=== PATIENT | male | born 1940 | race Caucasian/White ===

== ENCOUNTER → 2023-07-07 13:59 | Outpatient (REF) | payer BC, MEDICARE, SELFPAY | LOC: DHCBS MAIN 13:59 | PROVIDERS: ATTENDING PHYSICIAN Nuclear Medicine Nuclear Cardiology; FAMILY PHYSICIAN Family Medicine | DX: I34.0 Nonrheumatic mitral (valve) insufficiency (principal) | CPT/HCPCS: 93306 ==

== ENCOUNTER → 2023-10-29 16:00 | Outpatient (REF) | payer BC, MEDICARE, SELFPAY ==
[2023-10-30 12:14] LABS: Blood Urea Nitrogen 24 mg/dl (9-20); Glucose 104 mg/dl (70-99); eGFR > 60.00
[2023-10-30 12:15] LABS: ALT (SGPT) 15 U/L (0-50); AST (SGOT) 20 U/L (17-59); Albumin 3.8 g/dl (3.5-5.0); Alkaline Phosphatase 97 U/L (38-126); Calcium 9.4 mg/dl (8.4-10.2); Carbon Dioxide 28 mmol/L (22-30); Chloride 105 mmol/L (98-107); HDL Cholesterol 43 mg/dl; LDL Cholesterol, Calculated 83 mg/dl; Potassium 3.9 mmol/L (3.5-5.1); Sodium 140 mmol/L (135-145); Total Cholesterol 151 mg/dl (50-199); Total Protein 6.2 g/dl (6.3-8.2); Triglyceride 127 mg/dl (10-149); Very Low Density Lipoprotein 25 mg/dl (0-30)
[2023-10-30 12:16] LABS: % Neutrophils 57.3 % (42.2-75.2); Hematocrit 45.1 % (39.0-52.0); Hemoglobin 15.6 g/dL (13.0-18.0); Mean Corp Hgb Conc. 34.6 g/dL (33.0-37.0); Mean Corpuscular Hgb 33.1 pg (27.0-31.0); Mean Corpuscular Volume 95.6 fL (80.0-94.0); Mean Platelet Volume 12.3 fL (7.4-10.4); Platelet Count 138 10^3/uL (130-400); Red Blood Cell Count 4.72 10^6/uL (4.70-6.10); Red Cell Dist. Width 13.2 % (11.5-14.5); TSH 3.33 uIU/ml (0.47-4.68); White Blood Cell Count 7.7 10^3/uL (4.8-10.8)
[2023-10-30 12:17] LABS: % Basophils 0.4 % (0-2); % Eosinophils 2.6 % (0-6); % Immature Granulocytes 0.4 % (0-0.5); % Lymphocytes 31.7 % (20.5-51.1); % Monocytes 7.6 % (1.7-9.3); Absolute Eosinophils 0.2 10^3/uL (0-0.7); Absolute Lymphocytes 2.4 10^3/uL (1.2-3.4); Absolute Monocytes 0.6 10^3/uL (0.1-0.6); Absolute Neutrophils 4.4 10^3/uL (1.4-6.5); Glycohemoglobin (HgbA1c) 6.1 % (4.0-5.6); Nucleated Red Blood Cells % 0 % (-)
== END ==
LOC: REG 16:00
PROVIDERS: ATTENDING PHYSICIAN Family Medicine
DX: E11.65 Type 2 diabetes mellitus with hyperglycemia (principal); E66.3 Overweight; G25.81 Restless legs syndrome
CPT/HCPCS: 36415; 80053; 80061; 83036; 84443; 85025

== ENCOUNTER 2024-09-11 10:19 | Inpatient (IN) | payer BC, MEDICARE, SELFPAY ==
[2024-09-11] VITALS (14 sets, daily range): BP systolic 140–186; BP diastolic 50–143
[2024-09-11 04:54] LABS: Glucose - Point of Care 172 mg/dl (70-99)
--- NOTE | 2024-09-11 04:54 | ED.GENMED ---
History of Present Illness
General
Chief Complaint: Breathing Problem
Source: ambulance crew
Exam Limitations: clinical condition and altered mental status
Time Seen by Provider: 09/11/24 04:50
History of Present Illness
History of Present Illness:
This is an 83-year-old gentleman who resides at home with his . He has history of hypertension, hyperlipidemia, ttj-vopipgb-prdpchihf diabetes as well as history of CVA. He arrives via EMS�report from EMS notes that awoke to hear her
with gurgling respirations and upon further investigation he was poorly responsive. Upon EMS arrival patient was initially quite lethargic/obtunded but then became agitated, restless. Looking about the room but nonverbal. It apparently
took several police officers as well as to EMS personnel to transport the patient onto the stretcher and into the ambulance. En route to the hospital agitation and restlessness slowly improved. He remains nonverbal.
According to EMS patient has chronic ambulatory dysfunction since his stroke, is wheelchair-bound. He also has limited speech ability. There was no reported seizure activity and no prior history of seizure.
No prehospital medications administered. Blood sugar was not evaluated.
Past History
Past History
ED Past Medical History: CAD, CVA, HTN, Hypercholesterolemia, NIDDM and Valvular disease (Aortic stenosis)
ED Past Surgical History: Cardiac (PTCA with stent to the LAD May 2020) and Orthopedic
Social History
Tobacco: Non-smoker
Alcohol: None
Drug: None
Personal:
Living: with family
Employment: Retired
Family History
Family History: Unable to obtain
Phy Exam
Physical Exam
Physical Exam:
GENERAL: 83-year-old gentleman appears his stated age, he is awake, nonverbal, looks to the examiner and looks around the room to other personnel in the room but he is nonverbal. Is not following commands. Intermittent moist nonproductive cough is
noted. No respiratory distress. Mild upper airway rhonchi noted.
EYE: pupils equal and reactive. anicteric
NECK: Supple, nontender, no meningismus, no significant adenopathy.
ENT: posterior pharynx is clear, oral mucosa is moist. Scant clear rhinorrhea.
CARDIAC: Regular rate and rhythm. no murmur.
LUNGS: no acute respiratory distress, expiratory wheezing anteriorly, mildly decreased breath sounds at bases with scattered rhonchi.
ABDOMEN: Soft, nondistended, without focal tenderness, normoactive bowel sounds.
NEUROLOGICAL: Awake and alert, nonverbal, looks to the examiner but does not follow commands. Mild cogwheel rigidity of bilateral upper extremities. Moving all 4 extremities spontaneously.
SKIN: Warm and dry, normal color, skin intact. No rash.
MUSCULOSKELETAL: No C/C/E. peripheral pulses are full and equal b/l. No palpable tenderness.
PSYCH: Nonverbal, not obtainable.
Scores
Heart Failure Risk
Heart Failure Risk Score: Yes
History of Stroke or TIA: Yes
History of intubation for respiratory distress: No
Heart rate on ED arrival >/= 110: No
SaO2 <90% on arrival on room air: No
HR >/=110 during 3min walk test (or too ill to perform test): Yes
ECG has acute ischemic changes: No
Urea >/=12mmol/L (BUN 33.6mg/dL): No
Serum CO2>/=35mmol/L: No
Troponin I or T elevated to [place] Level (0.4mg/dL): No
NT-proBNP >/=5,000ng/L (5,000pg/ml): No
HF Risk Score: 3
Admission Status: HIGH RISK 15.9% Consider SNF treatment or admission to hospital
Sepsis
Sepsis Screening
Sepsis Assessment: Sepsis Ruled Out
Sepsis Screen
Sepsis Screen: Sepsis Ruled Out
Date: 09/11/24
Time: 06:59
Course
Orders/Labs/Results
Orders:
Orders
09/11/24
Electrocardiogram (*1) Stat
Reason for Study: Chest Pain
Comment: DONE
09/11/24 04:55
CT Head W/o Iv Contrast Urgent
Comment:
Reason For Exam: acute change in MS, combative, confused
09/11/24 04:56
Urinalysis Reflex To Culture Urgent
Rapid EEG [Rapid Point of Care EEG (ED/ICU ONLY)] Q1H
Indications for use:: Altered Mental Status
09/11/24 04:57
EKG- Treatment ONCE
Complete Blood Count/With Diff Urgent
Comprehensive Metabolic Panel Urgent
Free T4 Urgent
Lactic Acid Urgent
NT-proBNP Urgent
TSH Reflex To Free T4 Urgent
Troponin I Urgent
09/11/24 04:58
Bedside Glucose- Treatment ONCE
09/11/24 05:22
CR Chest Portable - 1 View Urgent
Comment:
Reason For Exam: cough, confusion
Reason Study Needs to be Portable: Unable to Transport
09/11/24 06:20
Speech Screening from Chirag Routine
Abnormal Lab Results
09/11/24 09/11/24
04:53 04:57
MCV 95.3 H fL
(80.0-94.0)
MCH 33.3 H pg
(27.0-31.0)
MPV 11.9 H fL
(7.4-10.4)
Chloride 114 H mmol/L
(98-107)
BUN 29 H mg/dl
(9-20)
Glucose 158 H mg/dl
(70-99)
Total Protein 6.2 L g/dl
(6.3-8.2)
TSH (Reflex) 5.05 H uIU/ml
(0.47-4.68)
POC Glucose 172 H mg/dl
(70-99)
09/11/24 04:57
09/11/24 04:57
Vital Signs
Initial and Last Documented VS:
Initial Vital Signs
Temp Pulse Resp BP Pulse Ox
98.5 F 74 22 166/50 97
09/11/24 04:49 09/11/24 04:49 09/11/24 04:49 09/11/24 04:49 09/11/24 04:49
Last Documented Vital Signs
Temp Pulse Resp BP Pulse Ox
98.5 F 76 21 152/111 96
09/11/24 04:49 09/11/24 06:00 09/11/24 06:00 09/11/24 06:00 09/11/24 06:00
MDM/Problems Addressed
Differential Diagnosis Includes:
Apparent acute change in mental status, concern for seizure activity with postictal state, concern for aspiration, pneumonia, CHF, CVA, sepsis, arrhythmia.
Accu-Chek upon arrival to the ED 170.
Patient noted to have coarse rhonchi and intermittent moist nonproductive cough but no respiratory distress and pulse ox 97 to 98% on room air.
No report of fall and no evidence of trauma on exam.
Will check labs, CT of the head, chest x-ray and will place Cerebell-assess for potential seizure activity.
Chronic conditions affecting care: DM, HTN, CAD, Arrhythmia, Neurological disorder and Other (History of aortic stenosis/CHF)
*Radiology
Radiology exam reviewed: radiology read reviewed
*Pulse Oximetry
Patient hypoxic: no
*EKG
Interpreted by ED Provider?: Yes
Interpretation: abnormal
Comparison EKG: no changes (Essentially unchanged from previous December 2022)
Rate: normal
Rhythm: sinus
Interval: first degree heart block
QRS Pattern: left bundle branch block
Ischemia: non-specific ST changes
*Outer Diameter Grinder Interpretation
Rate: normal
Interpretation: normal
Rhythm: sinus
*Critical Care Note
Total Time (30-74mins, 75-104mins- exclusive of procedures): Not Applicable
Update Note
Update Note:
now at bedside.
She reports hearing her cough, moan and upon further investigation he was noted to have noisy respiration, upper airway rhonchi and was also noted to be nonverbal which is new for him. He does have baseline expressive aphasia but can say a
few words. He is chronically bedbound, occasionally able to feed himself with his left arm but dependent for all ADLs.
Cough and upper airway rhonchi is a new finding. Prior to tonight he had been at his baseline, no recent cough nor congestion.
No episodes of vomiting.
There is still some concern for potential seizure, aspiration.
Concern for CVA, pneumonia, bronchitis, CHF.
Bedside EEG shows no evidence of seizure activity.
Portable chest x-ray shows poor inspiratory effort otherwise unremarkable.
06:55
CAT scan shows large area of old infarct right parietal lobe and small lacunar infarcts but no acute findings.
Patient remains awake, nonverbal, mild upper airway rhonchi but no respiratory distress, normal pulse ox.
Concern for new onset seizure, concern for aspiration, concern for acute CVA.
With history of aortic stenosis, up-trend in BNP there is also some concern for CHF.
Will admit to hospitalist service.
ED Attending Note
-
Portions of this chart may have been created with voice recognition software.� Occasional wrong word or��sound alike� substitutions may have occurred due to the inherent limitations of voice recognition software.
Discharge Plan
Departure
Patient Disposition: Admit
Date of Disposition: 09/11/24
Time of Disposition: 06:59
Admit to: Telemetry
Presentation/result/management discussed w/ accepting MD/DO: Hospitalist
Condition: Fair
Discharge Problem:
Acute alteration in mental status
Prescriptions:
No Action
atorvastatin 40 MG tablet
40 mg PO HS
aspirin 81 MG tablet,chewable
81 mg PO HS
Jardiance 10 MG tablet
10 mg PO DAILY
metformin 1,000 MG tablet
1,000 mg PO BID Qty: 0 0RF
Rx Instructions:
HOLD post cath- OK to resume on Thursday 05/25 in AM
pantoprazole 40 MG tablet,delayed release (DR/EC)
40 mg PO DAILY 0RF
Interventions
Interventions:
*Risk Screen - Suicide Last Done: 09/11/24 05:21
*General Assessment Last Done: 09/11/24 05:33
*Neglect/Abuse Screening Last Done: 09/11/24 05:21
*ED- Fall Risk Assessment Last Done: 09/11/24 05:31
*ED COVID-19 Vaccine History Last Done: 09/11/24 05:31
ED- Cardiac Assessment Last Done: 09/11/24 05:26
ED- Pulmonary Assessment Last Done: 09/11/24 05:26
Discharge Date and Time
Print Language: GHANAIAN
[2024-09-11 05:09] LABS: % Basophils 0.5 % (0-2); % Eosinophils 2.8 % (0-6); % Immature Granulocytes 0.4 % (0-0.5); % Lymphocytes 33.6 % (20.5-51.1); % Monocytes 7.8 % (1.7-9.3); % Neutrophils 54.9 % (42.2-75.2); Absolute Eosinophils 0.2 10^3/uL (0-0.7); Absolute Lymphocytes 2.5 10^3/uL (1.2-3.4); Absolute Monocytes 0.6 10^3/uL (0.1-0.6); Absolute Neutrophils 4.2 10^3/uL (1.4-6.5); Hematocrit 44.9 % (39.0-52.0); Hemoglobin 15.7 g/dL (13.0-18.0); Mean Corpuscular Hgb 33.3 pg (27.0-31.0); Mean Corpuscular Volume 95.3 fL (80.0-94.0); Mean Platelet Volume 11.9 fL (7.4-10.4); Nucleated Red Blood Cells % 0 % (-); Platelet Count 138 10^3/uL (130-400); Red Blood Cell Count 4.71 10^6/uL (4.70-6.10); Red Cell Dist. Width 12.8 % (11.5-14.5); White Blood Cell Count 7.6 10^3/uL (4.8-10.8)
[2024-09-11 05:20] LABS: ALT (SGPT) 16 U/L (0-50); AST (SGOT) 17 U/L (17-59); Albumin 3.7 g/dl (3.5-5.0); Alkaline Phosphatase 126 U/L (38-126); Blood Urea Nitrogen 29 mg/dl (9-20); Calcium 8.6 mg/dl (8.4-10.2); Carbon Dioxide 23 mmol/L (22-30); Chloride 114 mmol/L (98-107); Glucose 158 mg/dl (70-99); Potassium 4.2 mmol/L (3.5-5.1); Sodium 142 mmol/L (135-145); Total Bilirubin 0.7 mg/dl (0.2-1.3); Total Protein 6.2 g/dl (6.3-8.2); eGFR > 60.00
[2024-09-11 05:21] LABS: Lactic Acid 1.8 mmol/L (0.7-2.0)
[2024-09-11 05:31] LABS: NT-proBNP 1820 pg/ml; Troponin I 0.017 ng/ml
[2024-09-11 05:51] LABS: TSH Reflex To Free T4 5.05 uIU/ml (0.47-4.68)
[2024-09-11 06:30] LABS: Free T4 1.03 ng/dl (0.78-2.19)
[2024-09-11] MEDS: KEPPRA 1000 MG IV (08:39)
[2024-09-11] MEDS: DUONEB 3 ML INH (08:40)
--- NOTE | 2024-09-11 09:09 | HPS.HSE ---
Family Physician
-
Family Physician: Tor Garcia
Chief Complaint
-
Mental status changes
History of Present Illness
Patient 83 years old male with past medical history of hypertension, hyperlipidemia, CVA, diabetes mellitus, aortic stenosis, CAD, came into the hospital with altered mental status. Most of the information gathered from at the bedside and
electronic medical record status patient unable to provide any meaningful information. Patient's noticed some noise around 4 AM this morning and when she checked on him he was coughing but stopped coughing and had soiled himself as well. She
also noticed that he has this gurgling noise sound in his breathing and he has not been himself and he has been not responsive to any commands since then. At baseline he is mostly bedbound and wheelchair-bound and he does have aphasia but he is
able to communicate to some degree. When EMS arrived the patient was agitated. Denies any recent illness. In the ER he was given IV Keppra. He had a CT scan of the head no acute abnormalities but chronic changes. He was referred to hospitalist
service for further evaluation.
Medical History
Past Medical History
Past Medical History: Reports Other
Additional Past Medical History:
Hypertension, hyperlipidemia, CVA, diabetes mellitus, aortic stenosis, CAD
Past Surgical History: Reports Other
Additional Past Surgical History:
PCI with stent in the past. Other orthopedic surgeries.
Social History
Tobacco: Non-smoker
Alcohol: None
Drug: None
Family History
Family History: Not pertinent
Allergies / Home Medications
Allergies reflects when Allergies were last updated in [facility].
Home Medications with original date entered in [facility]
Allergy/Medication List:
Allergies
Allergy/AdvReac Type Severity Reaction Status Date / Time
No Known Allergies Allergy Verified 09/11/24 04:55
Home Medications
pantoprazole 40 mg tablet,delayed release 40 mg PO DAILY 12/13/19
aspirin 81 mg chewable tablet 81 mg PO HS Blood clot prevention/tx 02/22/20
atorvastatin 40 mg tablet 40 mg PO HS High cholesterol 02/22/20
empagliflozin 10 mg tablet (Jardiance) 10 mg PO DAILY Diabetes 04/05/20
metformin 1,000 mg tablet 1,000 mg PO BID Diabetes ##0 05/24/20
Review of Systems
-
A 12 point ROS was completed and negative except as noted: Yes
Physical Exam
Vital Signs
Vital Signs
Temp Pulse Resp BP Pulse Ox
98.5 F 83 21 166/92 91
09/11/24 04:49 09/11/24 08:30 09/11/24 08:30 09/11/24 08:00 09/11/24 08:00
Physical exam:
General: Acutely ill
HEENT: Normocephalic, Atraumatic and Moist Mucous Membranes
Respiratory: Coarse notable breath sounds but relatively clear to Auscultation; Negative Wheezes, Rales or Rhonchi
Cardiac: Regular Rhythm and S1/S2, systolic murmur
GI: Soft, Nontender and Nondistended
Musculoskeletal: No Clubbing, No Cyanosis and No Edema
Neuro: Obtunded, opens eyes and moves head [id number] but does not follow commands, nonverbal. Does move spontaneously all 4 extremities.
Psych: Lack of judgment and insight
Physical Exam
General: Other
Laboratory Results
-
09/11/24 04:57
09/11/24 04:57
Laboratory Results
Lactic Acid 1.8 mmol/L (0.7-2.0) 09/11/24 04:57
Total Bilirubin 0.7 mg/dl (0.2-1.3) 09/11/24 04:57
AST 17 U/L (17-59) 09/11/24 04:57
ALT 16 U/L (0-50) 09/11/24 04:57
Alkaline Phosphatase 126 U/L (38-126) 09/11/24 04:57
Troponin I 0.017 ng/ml 09/11/24 04:57
Impression/Plan
-
IMPRESSION:
Patient 83 years old male with multiple comorbidities presented to the hospital with altered mental status. Patient at increased risk of morbidity mortality due to acute presentation and multiple comorbidities therefore he will need to be treated
in the hospital and monitor accordingly.
PLAN:
Acute metabolic encephalopathy:
Likely related to seizures
CT of the head large old area right parietal lobe and small lacunar infarct but no acute finding
Given IV Keppra loading dose in the ED.
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
Plan to do EEG
Keep n.p.o. until mental status improves
Monitor neurological status
Seizures precautions
Shortness of breath:
Likely related to aspiration pneumonitis
No need for antibiotics since patient afebrile and no leukocytosis and oxygenating well
Keep n.p.o. until able to protect airway
Speech therapy eval down the road for swallowing
DuoNebs as needed
High blood pressure, no formal diagnosis of HTN:
IV hydralazine as needed
Hyperlipidemia:
Hold home statin until able to take oral
He is on atorvastatin 40 mg p.o. daily
CVA:
Hold antiplatelets and statins until able to take oral
He is on aspirin 81 mg p.o. daily, atorvastatin 40 mg p.o. daily
CAD:
Hold on anti-ischemic regimen until able to take oral
He is on aspirin 81 mg p.o. daily, atorvastatin.
Diabetes mellitus type 2:
Insulin sliding scale
Hold oral hypoglycemic
He is on Jardiance 10 mg p.o. daily, metformin 1000 mg p.o. daily.
Update hemoglobin A1c in a.m.
Aortic stenosis:
Per there has been discussion with cardiology that he would not be a candidate for TAVR-can follow-up as outpatient
Last echocardiogram in 2023 showed at least moderate aortic stenosis with peak/mean gradient 50/29 mmHg.
Chronic HFmrEF:
Monitor volume status closely
Hold on IV fluids unless absolutely needed
Not on diuretics as outpatient
Last echocardiogram in 2023 EF was 48%
Cognitive deficits:
There is baseline cognitive deficits likely prior to stroke in the past
GERD:
On pantoprazole 40 mg p.o. daily as outpatient
No need for PPI for now
Osteoarthritis:
On meloxicam 7.5 mg p.o. daily
No need for pain medications for now
DVT prophylaxis:
Lovenox SQ
CODE STATUS:
Full code-confirmed with at bedside.
Time spent 75 minutes
--- NOTE | 2024-09-11 09:38 | CON.NEURO ---
Addendum entered and electronically signed by Tor Guillermo MD 09/11/24 11:25:
spoke with patient's - he is baseline non-ambulatory, transitions between wheelchair and recliner
she heard him coughing, came to his room, wasn't coughing anymore. she found that he soiled his diaper, and when she went to change him, he seemed to cooperate by moving in the direction that she was rolling him in; afterwards she noted that he was
not responding to any commands
I believe this would make seizure somewhat less likely but still possible
ddx including seizure 2/2 prior stroke, provoked seizure, or toxic/metabolic encephalopathy in the setting of severe dementia (not independent with ADLs)
Routine EEG for now
possibly more Ceribell monitoring
hold off MRI, patient will not lay still, brain tumor screening would not be helpful, finding a new stroke would not change the management
no Rx, a self limiting seizure would not hurt him as injury risk would be lower in someone who is wheelchair bound, weighing risks of sedation
all discussed with
Addendum entered and electronically signed by Tor Guillermo MD 09/11/24 10:01:
head CT imgs rev'd, right posterior temporal/parietal encephalomalacia, small chronic infarcts right external capsule, left internal capsule, left globus pallidus, left occipital
Original Note:
Neuro Assessment/Plan
Assessment
brain MRI, MRA head/neck from 2019 imgs and rept reviewed, agree large right M2 stroke.
Ceribell monitoring overnight showed no active seizures
Certainly seizure/post ictal is within the differential, with his large right M2 stroke in 2020 as potential source of seizures, though toxic/metabolic/infectious causes are more likely
stroke would be an unlikely cause of his AMS without any lateralizing deficit
would begin with routine EEG to evaluate for interictal epileptiform activity (which is not well seen on Ceribell), and if no epileptiform activity on routine EEG would not continue Keprpa, would not treat a possible first time seizure.
Plan
routine EEG
Consultation
Order
Date of Consultation: 09/11/24
Requesting Provider: Erick Gaspar
Reason for Consult: AMS
Subjective/Objective
Subjective Data
Date of Service: September 11, 2024
This is an 83-year-old gentleman who resides at home with his . He has history of hypertension, hyperlipidemia, off-uepsopx-jxfcyqysz diabetes as well as history of CVA. He arrives via EMS�report from EMS notes that awoke to hear her
with gurgling respirations and upon further investigation he was poorly responsive. Upon EMS arrival patient was initially quite lethargic/obtunded but then became agitated, restless. Looking about the room but nonverbal. It apparently
took several police officers as well as to EMS personnel to transport the patient onto the stretcher and into the ambulance. En route to the hospital agitation and restlessness slowly improved. He remains nonverbal.
Reported baseline is ambulatory with assistive device, feeds himself, recognizes .
he was given Keppra 1000 overnight. at time of my eval, remains nonverbal
Objective Data
Vital Signs
Temp Pulse Resp BP Pulse Ox
36.9 C 83 21 166/92 91
09/11/24 04:49 09/11/24 08:30 09/11/24 08:30 09/11/24 08:00 09/11/24 08:00
Lab Results
09/11/24 04:57
09/11/24 04:57
Sodium 142 mmol/L (135-145) 09/11/24 04:57
Potassium 4.2 mmol/L (3.5-5.1) 09/11/24 04:57
BUN 29 mg/dl (9-20) H 09/11/24 04:57
Glucose 158 mg/dl (70-99) H 09/11/24 04:57
Calcium 8.6 mg/dl (8.4-10.2) 09/11/24 04:57
Mbp-O-Chpwahretan Pept 1820 pg/ml 09/11/24 04:57
Patient Allergies
No Known Allergies Allergy (Verified 09/11/24 04:55)
Physical Exam
-
Obtunded, briefly opens eyes and attends bilaterally, nonverbal, not following commands
semi purposeful movements with upper ext anti gravity, and lower ext in plane of bed, symmetrically
Medications
-
Home Medications
�Medication �Instructions �Recorded
pantoprazole 40 mg tablet,delayed 40 mg PO DAILY 12/13/19
release
aspirin 81 mg chewable tablet 81 mg PO HS Blood clot 02/22/20
prevention/tx
atorvastatin 40 mg tablet 40 mg PO HS High cholesterol 02/22/20
empagliflozin 10 mg tablet 10 mg PO DAILY Diabetes 04/05/20
(Jardiance)
metformin 1,000 mg tablet 1,000 mg PO BID Diabetes ##0 05/24/20
--- NOTE | 2024-09-11 11:05 | CM ---
Met with pt's at bedside in ED. Prior admission he resided in 2 story home with 3 MARY, unsure if current living situation is same.
2 sons also live in home and provide support. Pt is NWB, has WC. Currently has [facility] twice weekly for 4 hours, privately arranged. Had [facility] in past, no current services.
PCP: Tor Garcia
Pharmacy: [facility].
Plan: Home, pending outcome of ongoing medical evaluation; watch for possible SNF need
[2024-09-11 14:09] LABS: Glucose - Point of Care 122 mg/dl (70-99)
[2024-09-11] MEDS: NSS 1000 IV (17:20)
[2024-09-11] MEDS: LOVENOX 40 MG SC (17:21)
[2024-09-11 18:19] LABS: Glucose - Point of Care 118 mg/dl (70-99)
--- NOTE | 2024-09-11 19:15 | PTCARENOTE ---
pt admitted from ED. upon arrival pt nonverbal restless and not following commands. seizure pads on bed. iv fluids initiated. pt npo. pt initially flailing legs over side of bed. order obtained for limb restraints however pt has been sleeping now
with only slight restlessness and family is in room with pt so restraints not used. bed alarm in place. no seizure activity noted.
[2024-09-12] VITALS (12 sets, daily range): BP systolic 115–149; BP diastolic 53–96
[2024-09-12 06:19] LABS: % Basophils 0.3 % (0-2); % Eosinophils 0.3 % (0-6); % Immature Granulocytes 0.3 % (0-0.5); % Lymphocytes 12.3 % (20.5-51.1); % Neutrophils 79.8 % (42.2-75.2); Absolute Lymphocytes 1.4 10^3/uL (1.2-3.4); Absolute Monocytes 0.8 10^3/uL (0.1-0.6); Absolute Neutrophils 9.2 10^3/uL (1.4-6.5); Hematocrit 43.3 % (39.0-52.0); Hemoglobin 15.3 g/dL (13.0-18.0); Mean Corp Hgb Conc. 35.3 g/dL (33.0-37.0); Mean Corpuscular Hgb 32.8 pg (27.0-31.0); Mean Corpuscular Volume 92.9 fL (80.0-94.0); Mean Platelet Volume 11.5 fL (7.4-10.4); Nucleated Red Blood Cells % 0 % (-); Platelet Count 127 10^3/uL (130-400); Red Blood Cell Count 4.66 10^6/uL (4.70-6.10); Red Cell Dist. Width 12.5 % (11.5-14.5); White Blood Cell Count 11.5 10^3/uL (4.8-10.8)
[2024-09-12 06:29] LABS: Blood Urea Nitrogen 14 mg/dl (9-20); Calcium 8.7 mg/dl (8.4-10.2); Carbon Dioxide 25 mmol/L (22-30); Chloride 107 mmol/L (98-107); Estimated Creatinine Clearance 97 ml/min; Glucose 138 mg/dl (70-99); Magnesium 1.6 mg/dl (1.6-2.3); Potassium 4.3 mmol/L (3.5-5.1); Sodium 137 mmol/L (135-145); eGFR > 60.00
--- NOTE | 2024-09-12 06:35 | PTCARENOTE ---
Addendum entered by Soledad Newman 09/12/24 06:40:
Frequent PVCs noted on CM, magnesium added to morning labs by VICTOR HUGO.
Original Note:
Pt continues with gurgly voice quality, no meaningful speech noted. Fluids maintained per MD orders. CC attempted to prevent further skin breakdown, pt wore for about one hour until device fell off. Device remained off, hygiene care performed for
incontinence. Q2T schedule in place to prevent further skin breakdown. Bed alarm in place for pt safety. Seizure pads maintained. Care ongoing
[2024-09-12 07:52] LABS: Glucose - Point of Care 136 mg/dl (70-99)
--- NOTE | 2024-09-12 08:21 | PTCARENOTE ---
Pt sleeping at this time. NSS at 85ml/hr. Pt on RA at 90% Pt remains NPO. Q6 hr accu check.
[2024-09-12] MEDS: NSS 1000 IV ×2 (08:33→14:22)
[2024-09-12] MEDS: DESENEX/MITRAZOL/ZEASORB 1 APPLIC TOPICAL ×2 (08:56→20:14)
--- NOTE | 2024-09-12 08:58 | PTCARENOTE ---
Pt suctioned for copious yellowm secrwetions from throat. Pt bathed exrtensive mouth care now on L side.
--- NOTE | 2024-09-12 09:01 | W.PN.HOSP.TC ---
Addendum entered and electronically signed by Gerardo Wellington MD 09/12/24 17:48:
updated over the phone today
Original Note:
Today's Communication/Plan
-
Monitor neurological status
Assessment / Plan
Assessment / Plan
Physical exam:
General: Acutely ill
HEENT: Normocephalic, Atraumatic and Moist Mucous Membranes
Respiratory: Coarse notable breath sounds but relatively clear to Auscultation; Negative Wheezes, Rales or Rhonchi
Cardiac: Regular Rhythm and S1/S2, systolic murmur
GI: Soft, Nontender and Nondistended
Musculoskeletal: No Clubbing, No Cyanosis and No Edema
Neuro: Obtunded, opens eyes and moves head [id number] but does not follow commands, nonverbal. Does move spontaneously all 4 extremities.
Psych: Lack of judgment and insight
A/P:
Acute metabolic encephalopathy:
Likely related to seizures
Try obtain UA
CT of the head large old area right parietal lobe and small lacunar infarct but no acute finding
Given IV Keppra loading dose in the ED.
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
EEG per neurology
Keep n.p.o. until mental status improves
IV fluid
Monitor neurological status
Seizures precautions
Keep restraints for safety
Updated at bedside yesterday
Shortness of breath:
Likely related to aspiration pneumonitis
No need for antibiotics since patient afebrile and no leukocytosis and oxygenating well on room air
Suction secretions as needed
Keep n.p.o. until able to protect airway
Speech therapy eval for swallowing recommend to keep n.p.o.
DuoNebs as needed
High blood pressure, no formal diagnosis of HTN:
IV hydralazine as needed
Hyperlipidemia:
Hold home statin until able to take oral
He is on atorvastatin 40 mg p.o. daily
CVA:
Hold antiplatelets and statins until able to take oral
He is on aspirin 81 mg p.o. daily, atorvastatin 40 mg p.o. daily
CAD:
Hold on anti-ischemic regimen until able to take oral
He is on aspirin 81 mg p.o. daily, atorvastatin.
Diabetes mellitus type 2:
Insulin sliding scale
Hold oral hypoglycemic
He is on Jardiance 10 mg p.o. daily, metformin 1000 mg p.o. daily.
Update hemoglobin A1c--> 6.3
Aortic stenosis:
Per there has been discussion with cardiology that he would not be a candidate for TAVR-can follow-up as outpatient
Last echocardiogram in 2023 showed at least moderate aortic stenosis with peak/mean gradient 50/29 mmHg.
Chronic HFmrEF:
Monitor volume status closely
Gentle IV fluid hydration for now
Not on diuretics as outpatient
Last echocardiogram in 2023 EF was 48%
Cognitive deficits:
There is baseline cognitive deficits likely prior to stroke in the past
GERD:
On pantoprazole 40 mg p.o. daily as outpatient
No need for PPI for now
Osteoarthritis:
On meloxicam 7.5 mg p.o. daily
No need for pain medications for now
DVT prophylaxis:
Lovenox SQ
CODE STATUS:
Full code
Total time spent on today's encounter was 52 minutes which included time spent in counseling the patient/family regarding diagnosis and treatment plan as listed above, goals of care, and symptom management. Case was discussed with nursing staff,
specialists, and care coordinators/case management. All labs and imaging personally reviewed by me. Remainder the time spent in detailed review of previous records, lab data, imaging, and other medical provider documentation.
Anticipated Discharge: > 48 hours
Subjective/Interval History
-
Date of Service: September 12, 2024
Patient still encephalopathic. Afebrile. On room air
Objective Data
-
Labs:
Laboratory Results
09/12/24
05:49
WBC 11.5 H
Hgb 15.3
Hct 43.3
Plt Count 127 L
Sodium 137
Potassium 4.3
Chloride 107
Carbon Dioxide 25
BUN 14
Creatinine 0.6 L
Glucose 138 H
Calcium 8.7
Vital Signs:
Vital Signs
Temp Pulse Resp BP Pulse Ox
100.1 F 83 15 116/61 93
09/12/24 07:22 09/12/24 06:00 09/12/24 06:00 09/12/24 06:00 09/12/24 06:00
I&O
09/11/24 09/12/24 09/13/24
06:59 06:59 06:59
Output Total 250 / 250
Balance -250 / -250
[2024-09-12 09:37] LABS: Glycohemoglobin (HgbA1c) 6.3 % (4.0-5.6)
--- NOTE | 2024-09-12 10:12 | EEG.RPT ---
Electroencephalogram Report
Recording
Date of EE09/11/24
Length of EEG recordin mins 59 seconds
Done with Video Recording: No
Patient Status: Emergency Room
Recording Conditions: Awake and Confused
Hyperventilation Performed: No
Photic Stimulation Performed: No
Report
the recording begins 09/11/24 at 5:08 am until 6:09 am
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
Introduction: An emergent EEG was done using [employer] Assistant[employer] device in the ED
Background: In the most alert state, the there is continuous generalized slowing with low amplitude polymorphic delta activity and some overriding beta activity. There is spontaneous variability and reactivity.�A normal amount of eyeblink artifacts
in awake.
Sleep: No sleep is seen.�
Focal/epileptiform: There were no focal or epileptiform discharges. No clinical or electrographic seizures occurred during this recording.
Impression: Moderate generalized cerebral dysfunction
--- NOTE | 2024-09-12 10:25 | EEG.RPT ---
Electroencephalogram Report
Recording
Date of EE09/11/24
Length of EEG recordin mins
Done with Video Recording: Yes
Patient Status: Inpatient
Recording Conditions: Awake
Hyperventilation Performed: No
Photic Stimulation Performed: Yes
Report
Clinical Background:�83 year old man with h/o right M2 stroke and multiple other small infarcts presenting with altered mental status, obtunded in the ED, concern for status epilepticus. A routine EEG was performed after [employer]ib[employer] EEG to evaluate for
interictal epileptiform activity
Introduction: A routine bedside EEG was done using International 10-20 electrode placement protocol.
Background: In the most alert state, the there is continuous generalized slowing with predominantly polymorphic theta activity and some admixed polymorphic delta activity. There is spontaneous variability and reactivity.
Sleep: No sleep is seen.�
Focal/epileptiform: There were no focal or epileptiform discharges. No clinical or electrographic seizures occurred during this recording.
Photic stimulation: resulted in no background change. There was no photo myogenic or photoparoxysmal response.�
Impression: continuous generalized slowing
Clinical correlation:�Continuous generalized slowing indicates generalized cerebral dysfunction, as could be seen with toxic/metabolic encephalopathy, sedation, hyponatremia, hypoxia, hypothyroidism
[2024-09-12 11:52] LABS: Glucose - Point of Care 133 mg/dl (70-99)
[2024-09-12] MEDS: NOVOLOG FLEXPEN-LOW RESISTANCE SC ×2 (12:28→19:11)
[2024-09-12 17:47] LABS: Glucose - Point of Care 136 mg/dl (70-99)
[2024-09-12 19:04] LABS: Urine Albumin 1+ (Neg - Trace); Urine Bilirubin Negative (Negative); Urine Character Clear (Clear); Urine Color Yellow; Urine Glucose 3+ (Negative); Urine Ketone 2+ (Negative); Urine Leukocyte Negative (Negative); Urine Nitrite Negative (Negative); Urine Occult Blood 2+ (Negative); Urine Urobilinogen Negative (Neg - 1+)
[2024-09-12 19:13] LABS: Urine Squamous Cell 0-2 /LPF (Few)
[2024-09-12 19:14] LABS: Urine Bacteria Moderate (Negative)
[2024-09-12] MEDS: LOVENOX 40 MG SC (19:15)
--- NOTE | 2024-09-12 19:47 | W.PN.UPDATE ---
Update Note
Progress Note Update
New onset of fever (100.7), hr 85, bp 137/75, RR 21 and SPO2 94%.
Chest x-ray yesterday on admission with No acute disease of the chest and Mild cardiomegaly. Stable
cbc, blood culture, flu, covid lactic acid ordered.
Normal Lactic acid, and wbc trending down from 11.5--->10.9 this am 10.4.
Covid & flu (Neg)
Will hold off of Abx as urine culture and blood cultute is ending
[2024-09-12] MEDS: OFIRMEV 100 IV (20:14)
[2024-09-12 20:19] LABS: Hematocrit 42.5 % (39.0-52.0); Hemoglobin 15.3 g/dL (13.0-18.0); Mean Corpuscular Hgb 33.3 pg (27.0-31.0); Mean Corpuscular Volume 92.6 fL (80.0-94.0); Mean Platelet Volume 11.6 fL (7.4-10.4); Platelet Count 130 10^3/uL (130-400); Red Blood Cell Count 4.59 10^6/uL (4.70-6.10); Red Cell Dist. Width 12.3 % (11.5-14.5); White Blood Cell Count 10.9 10^3/uL (4.8-10.8)
--- NOTE | 2024-09-12 20:29 | PTCARENOTE ---
Pt with low grade temp 100.7, no tylenol ordered in JUN. GAS COMPRESSOR TURBINE OPERATOR contacted regarding fever. IV ofirmev hung per orders. Ordered labs drawn. Pt remains very lethargic. Bed alarm and seizure pads remain in place for pt safety.
[2024-09-12 20:30] LABS: Lactic Acid 1.8 mmol/L (0.7-2.0)
[2024-09-12 20:44] LABS: COVID-19 Antigen Negative (Negative)
--- NOTE | 2024-09-12 21:26 | W.PN.NEURO.1 ---
Today's Communication / Plan
-
doubt seizures
no need for antiseizure drugs
current presentation likely toxic metabolic encephalopthy vs progression of severe dementia
Neuro Assessment/Plan
Assessment
brain MRI, MRA head/neck from 2019 imgs and rept reviewed, agree large right M2 stroke.
Ceribell monitoring overnight showed no active seizures
Routine EEG this am showing continuous generalized slowing
Certainly seizure/post ictal is within the differential, with his large right M2 stroke in 2019 as potential source of seizures, though toxic/metabolic/infectious causes are more likely
stroke would be an unlikely cause of his AMS without any lateralizing deficit
spoke with , pre morbid level of cognition/functioning consistent with severe dementia, not indepednent with/attending to ADLs
Subjective/Objective
Subjective Data
Date of Service: September 12, 2024
Objective Data
Vital Signs
Temp Pulse Resp BP Pulse Ox
38.2 C H 85 21 137/75 94
09/12/24 19:19 09/12/24 20:01 09/12/24 20:01 09/12/24 20:01 09/12/24 21:09
Lab Results
09/12/24 20:02
09/12/24 05:49
Sodium 137 mmol/L (135-145) 09/12/24 05:49
Potassium 4.3 mmol/L (3.5-5.1) 09/12/24 05:49
BUN 14 mg/dl (9-20) 09/12/24 05:49
Glucose 138 mg/dl (70-99) H 09/12/24 05:49
Calcium 8.7 mg/dl (8.4-10.2) 09/12/24 05:49
Mtv-X-Fbnygmacxrw Pept 1820 pg/ml 09/11/24 04:57
Patient Allergies
No Known Allergies Allergy (Verified 09/11/24 04:55)
[2024-09-12 23:59] LABS: Urine Albumin 2+ (Neg - Trace); Urine Bilirubin Negative (Negative); Urine Character Cloudy (Clear); Urine Color Amber; Urine Glucose 2+ (Negative); Urine Ketone 2+ (Negative); Urine Leukocyte 1+ (Negative); Urine Nitrite Negative (Negative); Urine Occult Blood 3+ (Negative); Urine Specific Gravity 1.025 (<1.030); Urine Urobilinogen 1+ (Neg - 1+)
[2024-09-13] VITALS (12 sets, daily range): BP systolic 134–161; BP diastolic 62–109; BMI 26.4
[2024-09-13 00:33] LABS: Glucose - Point of Care 119 mg/dl (70-99)
[2024-09-13] MEDS: NOVOLOG FLEXPEN-LOW RESISTANCE SC ×5 (00:34→23:24)
[2024-09-13 00:36] LABS: Urine Bacteria Moderate (Negative)
[2024-09-13] MEDS: NSS 1000 IV ×2 (02:27→16:14)
[2024-09-13 05:15] LABS: % Basophils 0.4 % (0-2); % Eosinophils 0.3 % (0-6); % Immature Granulocytes 0.3 % (0-0.5); % Lymphocytes 15.3 % (20.5-51.1); % Monocytes 9.4 % (1.7-9.3); % Neutrophils 74.3 % (42.2-75.2); Absolute Lymphocytes 1.6 10^3/uL (1.2-3.4); Absolute Neutrophils 7.7 10^3/uL (1.4-6.5); Hematocrit 43.1 % (39.0-52.0); Hemoglobin 15.3 g/dL (13.0-18.0); Mean Corp Hgb Conc. 35.5 g/dL (33.0-37.0); Mean Corpuscular Hgb 32.8 pg (27.0-31.0); Mean Corpuscular Volume 92.5 fL (80.0-94.0); Mean Platelet Volume 11.6 fL (7.4-10.4); Nucleated Red Blood Cells % 0 % (-); Platelet Count 121 10^3/uL (130-400); Red Blood Cell Count 4.66 10^6/uL (4.70-6.10); Red Cell Dist. Width 12.4 % (11.5-14.5); White Blood Cell Count 10.4 10^3/uL (4.8-10.8)
[2024-09-13 05:38] LABS: Blood Urea Nitrogen 18 mg/dl (9-20); Calcium 8.5 mg/dl (8.4-10.2); Carbon Dioxide 23 mmol/L (22-30); Chloride 109 mmol/L (98-107); Estimated Creatinine Clearance 83 ml/min; Glucose 127 mg/dl (70-99); Sodium 138 mmol/L (135-145); eGFR > 60.00
[2024-09-13 06:09] LABS: Glucose - Point of Care 126 mg/dl (70-99)
[2024-09-13] MEDS: DESENEX/MITRAZOL/ZEASORB 1 APPLIC TOPICAL ×2 (07:35→19:28)
[2024-09-13 08:12] LABS: Glucose - Point of Care 130 mg/dl (70-99)
--- NOTE | 2024-09-13 12:01 | W.PN.HOSP.TC ---
Addendum entered and electronically signed by Gerardo Wellington MD 09/13/24 12:58:
Yes, Stage 1 bilateral buttock pressure injury, POA
Original Note:
Today's Communication/Plan
-
ID consult
Assessment / Plan
Assessment / Plan
Physical exam:
General: Acutely ill
HEENT: Normocephalic, Atraumatic and Moist Mucous Membranes
Respiratory: Coarse notable breath sounds but relatively clear to Auscultation; Negative Wheezes, Rales or Rhonchi
Cardiac: Regular Rhythm and S1/S2, systolic murmur
GI: Soft, Nontender and Nondistended
Musculoskeletal: No Clubbing, No Cyanosis and No Edema
Neuro: Obtunded, opens eyes and moves head [id number] but does not follow commands, nonverbal. Does move spontaneously all 4 extremities.
Psych: Lack of judgment and insight
A/P:
Acute metabolic encephalopathy:
Suspected related to seizures but cannot rule out other etiology
CT of the head large old area right parietal lobe and small lacunar infarct but no acute finding
Given IV Keppra loading dose in the ED.
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
EEG per neurology
Keep n.p.o. until mental status improves
IV fluid
Monitor neurological status
Seizures precautions
Keep restraints for safety
Updated over the phone today
Discussed with neurology-asked him to reevaluate him patient today
Febrile illness:
Unclear if this could have been contributed to his presentation or not
Blood culture ordered earlier today
UA pending
Will request ID consult for further evaluation
Shortness of breath:
Suspected related to aspiration pneumonitis
Hold antibiotics -now spiking fevers but will have ID to evaluate first.
Suction secretions as needed
Keep n.p.o. until able to protect airway
Speech therapy eval for swallowing recommend to keep n.p.o.
DuoNebs as needed
High blood pressure, no formal diagnosis of HTN:
IV hydralazine as needed
Hyperlipidemia:
Hold home statin until able to take oral
He is on atorvastatin 40 mg p.o. daily
CVA:
Hold antiplatelets and statins until able to take oral
He is on aspirin 81 mg p.o. daily, atorvastatin 40 mg p.o. daily
CAD:
Hold on anti-ischemic regimen until able to take oral
He is on aspirin 81 mg p.o. daily, atorvastatin.
Diabetes mellitus type 2:
Insulin sliding scale
Hold oral hypoglycemic
He is on Jardiance 10 mg p.o. daily, metformin 1000 mg p.o. daily.
Update hemoglobin A1c--> 6.3
Aortic stenosis:
Per there has been discussion with cardiology that he would not be a candidate for TAVR-can follow-up as outpatient
Last echocardiogram in 2023 showed at least moderate aortic stenosis with peak/mean gradient 50/29 mmHg.
Chronic HFmrEF:
Monitor volume status closely
Gentle IV fluid hydration for now
Not on diuretics as outpatient
Last echocardiogram in 2023 EF was 48%
Cognitive deficits:
There is baseline cognitive deficits likely prior to stroke in the past
GERD:
On pantoprazole 40 mg p.o. daily as outpatient
No need for PPI for now
Osteoarthritis:
On meloxicam 7.5 mg p.o. daily
No need for pain medications for now
DVT prophylaxis:
Lovenox SQ
CODE STATUS:
Full code
Total time spent on today's encounter was 52 minutes which included time spent in counseling the patient/family regarding diagnosis and treatment plan as listed above, goals of care, and symptom management. Case was discussed with nursing staff,
specialists, and care coordinators/case management. All labs and imaging personally reviewed by me. Remainder the time spent in detailed review of previous records, lab data, imaging, and other medical provider documentation.
Anticipated Discharge: > 48 hours
Subjective/Interval History
-
Date of Service: September 13, 2024
Patient remains encephalopathic. He is spiking fevers and had a temperature 100.7 �F last evening and today at 100.9 Fahrenheit
Objective Data
-
Labs:
Laboratory Results
09/13/24
04:46
WBC 10.4
Hgb 15.3
Hct 43.1
Plt Count 121 L
Sodium 138
Potassium 4.0
Chloride 109 H
Carbon Dioxide 23
BUN 18
Creatinine 0.7
Glucose 127 H
Calcium 8.5
Vital Signs:
Vital Signs
Temp Pulse Resp BP Pulse Ox
100.9 F H 83 29 142/62 92
09/13/24 11:10 09/13/24 10:00 09/13/24 10:00 09/13/24 10:00 09/13/24 11:15
I&O
09/12/24 09/13/24 09/14/24
06:59 06:59 06:59
Intake Total 1390 / 1390
Output Total 250 / 250 825 / 825
Balance -250 / -250 565 / 565
[2024-09-13 12:09] LABS: Glucose - Point of Care 123 mg/dl (70-99)
--- NOTE | 2024-09-13 12:29 | PN.CDI ---
CDI
- -
CDI:
Physician Documentation Request
Admit Date: 09/11/24 10:19
Dear Doctor Wellington,
Please review the following and provide your response in the progress notes.
Clinical Indicators:
Selected Entries
09/11/24
15:15
Pressure injury stage [Present on admission Bilateral Buttock] Stage 1
Physician documentation of the type and location of wounds is required for compliant documentation. Based on the above clinical findings and your assessment, please provide the following in your progress note:
Yes, Stage 1 bilateral buttock pressure injury, POA
No, Stage 1 bilateral buttock pressure injury
Other (please specify)
Location of the ulcer/wound, including laterality.
Type (etiology) of ulcer/wound:
- Diabetic ulcer
- Arterial (ischemic) ulcer
- Pressure (decubitus) ulcer
- Other
For a pressure ulcer, please also include the stage* of the ulcer:
- Stage 1 - Skin intact, non-blanchable redness
- Stage 2 - Partial thickness loss of dermis, includes intact or open blister
- Stage 3 - Full thickness tissue not including bone, tendon or muscle
- Stage 4 - Full thickness tissue loss, including exposed bone, tendon or muscle
- Unstageable - Full thickness loss in which the base of the ulcer is covered by slough (yellow, white, grant, green or brown) and/or eschar (white, brown or black) in the wound bed.
- Unable to determine
Use of terms such as suspected, likely, concern for, or probable (associated with a specific diagnosis that is being evaluated, monitored, or treated as if it exists) are acceptable and can be coded in the inpatient setting, when documented at the
time of discharge.
Thank you,
Courtney Pitt RN BSN CCDS
CDI Specialist
Please contact via tiger text
Please use your independent medical judgment in providing your response.
*Source: National Pressure Ulcer Advisory Panel (NPUAP)
--- NOTE | 2024-09-13 12:50 | CON.ID ---
Consultation
-
Date/Time Consultation Requested: September 13, 2024 1158
Date/Time Consultation Performed: September 13, 2024 1250
Requesting Provider: Dr. Gerardo Wellington
Performing Provider: Dr. Elisha Sorto
Reason for Consultation: Fever of unclear source
Chief Complaint / Past History
Chief Complaint
Change in mental status
History of Present Illness
History obtained from review of medical records since patient has dementia and unable to provide a meaningful history. He is a 83-year-old male with history of CVA, aphasia, CAD, heart failure with reduced EF, aortic stenosis who presented to the "[facility] with change in mental status, michaela. Please on September 11, patient woke up when she heard patient coughing. The coughing stopped. Then she heard gurgling sounds. He then became unresponsive. When EMS arrived patient was very
agitated. He was brought to the ER during second. Initially afebrile, no leukocytosis. Chest x-ray unremarkable. CT of the head no acute change. However on September 12 he spiked a temperature of 100.7. He continues to have low-grade fevers.
Patient sounds wet. Currently not on antibiotic.
Past History
Additional Past Medical History:
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
Dementia
CVA with aphasia
Hypertension
HLD
CAD status post stent
Heart failure with reduced EF
Aortic stenosis
Mitral regurgitation
Obstructive sleep apnea
Osteoarthritis
DJD
Depression
Restless leg syndrome
Left total knee arthroplasty
Rotator cuff repair
Cervical spine surgery
Bedbound and wheelchair-bound
Allergy History:
No Known Allergies Allergy (Verified 09/11/24 04:55)
Medications Reviewed: Yes
Current Antibiotics:
none
Social History
Tobacco: Non-Smoker
Alcohol: None
Drug: None
Personal:
Family History
Family History: Not Pertinent
Review of Systems
Review of Systems
Unable to obtain due to dementia and change in mental status.
Vital Signs
Temp Pulse Resp BP Pulse Ox
100.9 F H 83 29 142/62 92
09/13/24 11:10 09/13/24 10:00 09/13/24 10:00 09/13/24 10:00 09/13/24 11:15
Physical Exam
Physical Exam
Constitutional: Acutely Ill and Chronically Ill
Head: Other (No frontal or max or sinus tenderness)
Eyes: No Conjunctival Hemorrhage and Sclera Anicteric
Cardiovascular: Regular Rate, S1/S2 and Murmur (Right upper sternal border)
Pulmonary: Rhonchi
Gastrointestinal: Soft, Non Tender, Non Distended and Normal Bowel Sounds
Extremities: Negative Edema
Neurological: Other (Lethargic); Negative Meningeal Signs
Lab / Diagnostic Study Results
09/13/24 04:46
09/13/24 04:46
Abs Immat Gran (auto) 0.0 10^3/uL (0-0.05) 09/13/24 04:46
Absolute Neuts (auto) 7.7 10^3/uL (1.4-6.5) H 09/13/24 04:46
Absolute Lymphs (auto) 1.6 10^3/uL (1.2-3.4) 09/13/24 04:46
Absolute Monos (auto) 1.0 10^3/uL (0.1-0.6) H 09/13/24 04:46
Absolute Basos (auto) 0.0 10^3/uL (0-0.2) 09/13/24 04:46
Immature Gran % 0.3 % (0-0.5) 09/13/24 04:46
Neutrophils % 74.3 % (42.2-75.2) 09/13/24 04:46
Lymphocytes % 15.3 % (20.5-51.1) L 09/13/24 04:46
Monocytes % 9.4 % (1.7-9.3) H 09/13/24 04:46
Eosinophils % 0.3 % (0-6) 09/13/24 04:46
Basophils % 0.4 % (0-2) 09/13/24 04:46
Lactic Acid 1.8 mmol/L (0.7-2.0) 09/12/24 20:02
Ur Squamous Epith Cells 3-5 /LPF (Few) 09/12/24 23:47
Microbiology Results
Micro:
09/13/24 04:46 Blood Culture - Pending
Blood/Venous
09/12/24 23:47 Urine Culture - Pending
Urine
09/12/24 20:02 Influenza Types A & B (ADELSO) - Final
Nasal Swab Negative for Influenza A & B, NAAT
Negative results must be combined with clinical observations
and patient history.
Nucleic Acid Amplification test (NAAT)performed on the
[employer] ID NOW platform.
09/12/24 20:02 Blood Culture - Pending
Blood/Venous
09/12/24 18:54 Urine Culture - Pending
Urine
09/11/24 CXR: No acute disease of the chest.
09/11/[address]: No acute intracranial hemorrhage. Large area of old infarction/encephalomalacia predominantly within the right parietal lobe and small old lacunar infarcts, as detailed above.
Assessment / Plan
# Fever
# Suspect aspiration pneumonitis versus pneumonia
.Patient unable to clear secretions.
# Encephalopathy
# History of CVA and dementia, high risk for aspiration
-Repeat chest x-ray
-Follow blood cultures
- Start empiric Unasyn
- Follow fever trend
- Aspiration precaution.
- Mobilize secretions.
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
Dementia
CVA with aphasia
Hypertension
HLD
CAD status post stent
Heart failure with reduced EF
Aortic stenosis
Mitral regurgitation
Obstructive sleep apnea
Osteoarthritis
DJD
Depression
Restless leg syndrome
Left total knee arthroplasty
Rotator cuff repair
Cervical spine surgery
Bedbound and wheelchair-bound
Care Review
Plan reviewed with: Nurse
[2024-09-13] MEDS: UNASYN IV ×2 (15:00→20:38)
[2024-09-13] MEDS: LOVENOX 40 MG SC (17:03)
[2024-09-13 17:35] LABS: Glucose - Point of Care 121 mg/dl (70-99)
--- NOTE | 2024-09-13 18:20 | PTCARENOTE ---
see nursing flowsheet. pt sinus rythym on monitor with bb block and pvcs. pt is lethargic and not verbalizing. temp of 100.9 earlier in shift. seen by ID and chest x ray done. iv antibiotic initiated per order. iv fluids infusing. pt incontinent of
carin urine [address] protective foams placed on both heels. right ankle stage 1 cleansed with saline and silicone border foam applied.
[2024-09-13 23:35] LABS: Glucose - Point of Care 118 mg/dl (70-99)
[2024-09-14] VITALS (9 sets, daily range): BP systolic 143–168; BP diastolic 61–89; BMI 26.4
--- NOTE | 2024-09-14 00:43 | PTCARENOTE ---
Pt remains nonverbal, drowsy, lethargic. 2L O2 maintained at 95% SaO2. SR on CM with frequent PVCs, bigeminy at times and BBB. CC#21 maintained draining carin output. Hygiene and mouth care performed. Q2T schedule in place to prevent further skin
breakdown, however pt favors R side. Care ongoing
[2024-09-14] MEDS: UNASYN IV ×4 (01:47→21:05)
[2024-09-14 05:12] LABS: % Basophils 0.2 % (0-2); % Eosinophils 0.9 % (0-6); % Immature Granulocytes 0.4 % (0-0.5); % Lymphocytes 19.7 % (20.5-51.1); % Monocytes 10.6 % (1.7-9.3); % Neutrophils 68.2 % (42.2-75.2); Absolute Eosinophils 0.1 10^3/uL (0-0.7); Absolute Lymphocytes 1.6 10^3/uL (1.2-3.4); Absolute Monocytes 0.9 10^3/uL (0.1-0.6); Absolute Neutrophils 5.6 10^3/uL (1.4-6.5); Hematocrit 38.6 % (39.0-52.0); Hemoglobin 13.9 g/dL (13.0-18.0); Mean Corpuscular Hgb 32.9 pg (27.0-31.0); Mean Corpuscular Volume 91.5 fL (80.0-94.0); Mean Platelet Volume 11.7 fL (7.4-10.4); Nucleated Red Blood Cells % 0 % (-); Platelet Count 116 10^3/uL (130-400); Red Blood Cell Count 4.22 10^6/uL (4.70-6.10); White Blood Cell Count 8.2 10^3/uL (4.8-10.8)
[2024-09-14 05:33] LABS: Blood Urea Nitrogen 17 mg/dl (9-20); Calcium 8.1 mg/dl (8.4-10.2); Carbon Dioxide 19 mmol/L (22-30); Chloride 113 mmol/L (98-107); Estimated Creatinine Clearance 97 ml/min; Glucose 115 mg/dl (70-99); Potassium 3.6 mmol/L (3.5-5.1); Sodium 140 mmol/L (135-145); eGFR > 60.00
[2024-09-14] MEDS: NOVOLOG FLEXPEN-LOW RESISTANCE SC ×3 (06:19→17:52)
[2024-09-14 06:30] LABS: Glucose - Point of Care 110 mg/dl (70-99)
--- NOTE | 2024-09-14 07:33 | W.PN.HOSP.TC ---
Addendum entered and electronically signed by Gerardo Wellington MD 09/14/24 10:38:
Updated today. She wants to hold off on NG tube for at least 24 hours.
Original Note:
Today's Communication/Plan
-
IV antibiotics.
Assessment / Plan
Assessment / Plan
Physical exam:
General: Acutely ill
HEENT: Normocephalic, Atraumatic and Moist Mucous Membranes
Respiratory: Coarse notable breath sounds but relatively clear to Auscultation; Negative Wheezes, Rales or Rhonchi
Cardiac: Regular Rhythm and S1/S2, systolic murmur
GI: Soft, Nontender and Nondistended
Musculoskeletal: No Clubbing, No Cyanosis and No Edema
Neuro: Obtunded, opens eyes and moves head [id number] but does not follow commands, nonverbal. Does move spontaneously all 4 extremities.
Psych: Lack of judgment and insight
A/P:
Acute metabolic encephalopathy:
Suspected related to seizures but cannot rule out other etiology
CT of the head large old area right parietal lobe and small lacunar infarct but no acute finding
Given IV Keppra loading dose in the ED.
Neurology consult-discussed with neurology upon admission and recommended to hold on more Keprra for now given risk benefits on AED, also no MRI since he would not stay still and would not jacket changer.
EEG per neurology
Keep n.p.o. until mental status improves
IV fluid
Monitor neurological status
Seizures precautions
Keep restraints for safety
Updated over the phone today
Discussed with neurology-asked him to reevaluate him patient today
Febrile illness:
ID consult appreciated
Started on IV Unasyn for suspected aspiration pneumonia-of note follow-up chest x-ray still remains clear
Shortness of breath:
Suspected related to aspiration pneumonitis
ID eval
Suction secretions as needed
Keep n.p.o. until able to protect airway
Speech therapy eval for swallowing recommend to keep n.p.o.-will need to consider NG tube enteral feeding if remains n.p.o.
DuoNebs as needed
High blood pressure, no formal diagnosis of HTN:
IV hydralazine as needed
Hyperlipidemia:
Hold home statin until able to take oral
He is on atorvastatin 40 mg p.o. daily
CVA:
Hold antiplatelets and statins until able to take oral
He is on aspirin 81 mg p.o. daily, atorvastatin 40 mg p.o. daily
CAD:
Hold on anti-ischemic regimen until able to take oral
He is on aspirin 81 mg p.o. daily, atorvastatin.
Diabetes mellitus type 2:
Insulin sliding scale
Hold oral hypoglycemic
He is on Jardiance 10 mg p.o. daily, metformin 1000 mg p.o. daily.
Update hemoglobin A1c--> 6.3
Aortic stenosis:
Per there has been discussion with cardiology that he would not be a candidate for TAVR-can follow-up as outpatient
Last echocardiogram in 2023 showed at least moderate aortic stenosis with peak/mean gradient 50/29 mmHg.
Chronic HFmrEF:
Monitor volume status closely
Gentle IV fluid hydration for now
Not on diuretics as outpatient
Last echocardiogram in 2023 EF was 48%
Cognitive deficits:
There is baseline cognitive deficits likely prior to stroke in the past
GERD:
On pantoprazole 40 mg p.o. daily as outpatient
No need for PPI for now
Osteoarthritis:
On meloxicam 7.5 mg p.o. daily
No need for pain medications for now
DVT prophylaxis:
Lovenox SQ
CODE STATUS:
Full code
Total time spent on today's encounter was 52 minutes which included time spent in counseling the patient/family regarding diagnosis and treatment plan as listed above, goals of care, and symptom management. Case was discussed with nursing staff,
specialists, and care coordinators/case management. All labs and imaging personally reviewed by me. Remainder the time spent in detailed review of previous records, lab data, imaging, and other medical provider documentation.
Anticipated Discharge: > 48 hours
Subjective/Interval History
-
Date of Service: September 14, 2024
Remains cephalopathic. Afebrile today.
Objective Data
-
Labs:
Laboratory Results
09/14/24
04:56
WBC 8.2
Hgb 13.9
Hct 38.6 L
Plt Count 116 L
Sodium 140
Potassium 3.6
Chloride 113 H
Carbon Dioxide 19 L
BUN 17
Creatinine 0.6 L
Glucose 115 H
Calcium 8.1 L
Vital Signs:
Vital Signs
Temp Pulse Resp BP Pulse Ox
98.3 F 78 25 148/86 96
09/14/24 03:31 09/14/24 06:00 09/14/24 06:00 09/14/24 06:00 09/14/24 06:00
I&O
09/13/24 09/14/24 09/15/24
06:59 06:59 06:59
Intake Total 1390 / 1390 2140 / 2140
Output Total 825 / 825 900 / 900
Balance 565 / 565 1240 / 1240
[2024-09-14] MEDS: NSS 1000 IV (08:36)
[2024-09-14] MEDS: DESENEX/MITRAZOL/ZEASORB 1 APPLIC TOPICAL ×2 (08:36→21:06)
--- NOTE | 2024-09-14 09:14 | PTOTSP ---
Speech Therapy Evaluation:
Pt with acute on chronic risk factors of dysphagia including Dementia, CVA, GERD, seizures, and TME. Pt non-verbal and unable to follow commands during evaluation, resulting in decreased participation in bedside swallow evaluation. Pt with wet
respirations outside of oral intake. He demonstrated poor oral awareness of presented PO trials (ice chip), requiring SUPERINTENDENT PIER to orally suction out of oral cavity. Aspiration risk remains high given current mentation, poor oral hygeine, dependence for
oral care, and non-ambulatory status at baseline. CXR with atelectasis of RLL. WBC WNL.
Recommend:
1. Strict NPO
2. Meds non-oral
3. Oral care 3x daily
4. SUPERINTENDENT PIER to follow to assess candidacy for diet initiation
--- NOTE | 2024-09-14 11:46 | W.PN.ID1 ---
Date of Service
Date of Service: September 14, 2024
Today's Communication
Continue Unasyn.
Assessment / Plan
# Fever - resolving
# Aspiration pneumonitis without pneumonia
# Suspected UTI
# Encephalopathy, improved
# History of CVA and dementia
-09/13 repeat chest x-ray - no PNA
-Blood cultures - neg to date
- Ucx: E. faecalis
- Continue Unasyn (d2).
- Will de-escalate abx pending final cx data.
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
Dementia
CVA with aphasia
Hypertension
HLD
CAD status post stent
Heart failure with reduced EF
Aortic stenosis
Mitral regurgitation
Obstructive sleep apnea
Osteoarthritis
DJD
Depression
Restless leg syndrome
Left total knee arthroplasty
Rotator cuff repair
Cervical spine surgery
Bedbound and wheelchair-bound
Chief Complaint
-: Fever
Subjective / Review of Systems
More alert today.
Vital Signs / Physical Exam
Vital Signs
Vital Signs
Temp Pulse Resp BP Pulse Ox
97.1 F 78 25 148/86 96
09/14/24 07:25 09/14/24 06:00 09/14/24 06:00 09/14/24 06:00 09/14/24 06:00
Physical Exam
Constitutional: Chronically Ill
Eyes: Sclera Anicteric
Cardiovascular: Regular Rate and S1/S2
Pulmonary: Clear
Gastrointestinal: Soft, Non Tender and Non Distended
Genito-Urinary: Negative CVA Tenderness
Extremities: Negative Edema
Neurological: Awake
Objective Data
Lab Data
Lab Results
09/14/24 04:56
09/14/24 04:56
Estimated Creat Clear 97 ml/min 09/14/24 04:56
Lactic Acid 1.8 mmol/L (0.7-2.0) 09/12/24 20:02
Total Bilirubin 0.7 mg/dl (0.2-1.3) 09/11/24 04:57
AST 17 U/L (17-59) 09/11/24 04:57
ALT 16 U/L (0-50) 09/11/24 04:57
Alkaline Phosphatase 126 U/L (38-126) 09/11/24 04:57
Most recent labs reviewed.
Micro Results:
09/12/24 23:47 Urine Culture - Preliminary
Urine Enterococcus species
09/12/24 18:54 Urine Culture - Preliminary
Urine Enterococcus species
Gram negative bacilli
09/13/24 04:46 Blood Culture - Preliminary
Blood/Venous No Growth in 24 hours- Final report to follow
09/12/24 20:02 Blood Culture - Preliminary
Blood/Venous No Growth in 24 hours- Final report to follow
09/12/24 20:02 Influenza Types A & B (ADELSO) - Final
Nasal Swab Negative for Influenza A & B, NAAT
Negative results must be combined with clinical observations
and patient history.
Nucleic Acid Amplification test (NAAT)performed on the
[employer] platform.
09/13/24 CXR: Linear atelectasis in the right lower lung.
09/11/24 CXR: No acute disease of the chest.
09/11/[address]: No acute intracranial hemorrhage. Large area of old infarction/encephalomalacia predominantly within the right parietal lobe and small old lacunar infarcts, as detailed above.
[2024-09-14 12:09] LABS: Glucose - Point of Care 109 mg/dl (70-99)
[2024-09-14] MEDS: LOVENOX 40 MG SC (17:02)
--- NOTE | 2024-09-14 17:26 | PTCARENOTE ---
pt lethargic . occasionally wakens and moans or 'growls' when upset with care. attempts to push away with arms. pt clenches teeth with oral care/ suctioning. seen by speech and remains npo per order. iv fluids infusing. low grade temp of 100.1 this
afternoon
[2024-09-14 17:50] LABS: Glucose - Point of Care 116 mg/dl (70-99)
--- NOTE | 2024-09-14 17:55 | CM ---
Patient with Hx CVA with aphasia with Dx FRANCESCA suspect related to seizures, suspected aspiration pneumonia. O2 2L. Receiving IV Abx. NPO/IVF. Per nurse; confused, drowsy, lethargic, bedrest. ST Eval; unable to follow commands, recommend NPO.
CM continuing to follow cognitive status, diet status, mobility.
Plan follow up with family for d/c planning.
[2024-09-15] VITALS (12 sets, daily range): BP systolic 143–186; BP diastolic 49–98
[2024-09-15 00:09] LABS: Glucose - Point of Care 103 mg/dl (70-99)
[2024-09-15] MEDS: NOVOLOG FLEXPEN-LOW RESISTANCE SC ×4 (00:57→17:21)
[2024-09-15] MEDS: UNASYN IV ×4 (03:11→21:05)
[2024-09-15 04:57] LABS: % Basophils 0.3 % (0-2); % Eosinophils 1.7 % (0-6); % Immature Granulocytes 0.5 % (0-0.5); % Lymphocytes 20.3 % (20.5-51.1); % Monocytes 9.9 % (1.7-9.3); % Neutrophils 67.3 % (42.2-75.2); Absolute Eosinophils 0.2 10^3/uL (0-0.7); Absolute Lymphocytes 1.8 10^3/uL (1.2-3.4); Absolute Monocytes 0.9 10^3/uL (0.1-0.6); Absolute Neutrophils 5.8 10^3/uL (1.4-6.5); Hematocrit 40.1 % (39.0-52.0); Hemoglobin 14.3 g/dL (13.0-18.0); Mean Corp Hgb Conc. 35.7 g/dL (33.0-37.0); Mean Corpuscular Hgb 33.1 pg (27.0-31.0); Mean Corpuscular Volume 92.8 fL (80.0-94.0); Mean Platelet Volume 11.9 fL (7.4-10.4); Nucleated Red Blood Cells % 0 % (-); Platelet Count 139 10^3/uL (130-400); Red Blood Cell Count 4.32 10^6/uL (4.70-6.10); White Blood Cell Count 8.7 10^3/uL (4.8-10.8)
[2024-09-15] MEDS: NSS 1000 IV ×2 (04:57→17:27)
[2024-09-15] MEDS: NSS IV (04:58)
[2024-09-15 05:24] LABS: Blood Urea Nitrogen 17 mg/dl (9-20); Calcium 8.4 mg/dl (8.4-10.2); Carbon Dioxide 25 mmol/L (22-30); Chloride 110 mmol/L (98-107); Estimated Creatinine Clearance 72 ml/min; Glucose 102 mg/dl (70-99); Potassium 3.8 mmol/L (3.5-5.1); Sodium 142 mmol/L (135-145); eGFR > 60.00
[2024-09-15 05:47] LABS: Glucose - Point of Care 90 mg/dl (70-99)
--- NOTE | 2024-09-15 06:55 | PTCARENOTE ---
Cannot verify VS captured from prior shift.
--- NOTE | 2024-09-15 08:44 | VATNOTE ---
During routine rounds pt's existing PIV was noted to be leaking and a new one needed to be inserted. Pt uncooperative with setting up for PIV insertion. PCT assisted this RN with holding pt's arm while new PIV was started; see worklist documentation.
[2024-09-15] MEDS: DESENEX/MITRAZOL/ZEASORB 1 APPLIC TOPICAL ×2 (09:56→21:05)
--- NOTE | 2024-09-15 10:11 | W.PN.HOSP.TC ---
Addendum entered and electronically signed by Gerardo Wellington MD 09/15/24 13:53:
I was able to reach out to today
Original Note:
Today's Communication/Plan
-
IV fluids. IV antibiotics
Assessment / Plan
Assessment / Plan
Physical exam:
General: Acutely ill
HEENT: Normocephalic, Atraumatic and Moist Mucous Membranes
Respiratory: Coarse notable breath sounds but relatively clear to Auscultation; Negative Wheezes, Rales or Rhonchi
Cardiac: Regular Rhythm and S1/S2, systolic murmur
GI: Soft, Nontender and Nondistended
Musculoskeletal: No Clubbing, No Cyanosis and No Edema
Neuro: Obtunded, opens eyes and moves head [id number] but does not follow commands, nonverbal. Does move spontaneously all 4 extremities.
Psych: Lack of judgment and insight
A/P:
Acute metabolic encephalopathy:
Suspected related to seizures but cannot rule out other etiology
CT of the head large old area right parietal lobe and small lacunar infarct but no acute finding
Given IV Keppra loading dose in the ED.
Neurology consult-discussed with neurology upon admission and recommended to hold on more Keprra for now given risk benefits on AED, also no MRI since he would not stay still and would not change management specialist.
EEG per neurology
Keep n.p.o. until mental status improves
IV fluid
Monitor neurological status
Seizures precautions
Keep restraints for safety
Updated over the phone yesterday
Tried to reach out to today but unable
Febrile illness:
ID consult appreciated
Started on IV Unasyn for suspected aspiration pneumonia-of note follow-up chest x-ray still remains clear
Shortness of breath:
Suspected related to aspiration pneumonitis
ID eval
Suction secretions as needed
Keep n.p.o. until able to protect airway
Speech therapy eval for swallowing recommend to keep n.p.o.-will need to consider NG tube enteral feeding if remains n.p.o.
DuoNebs as needed
High blood pressure, no formal diagnosis of HTN:
IV hydralazine as needed
Hyperlipidemia:
Hold home statin until able to take oral
He is on atorvastatin 40 mg p.o. daily
CVA:
Hold antiplatelets and statins until able to take oral
He is on aspirin 81 mg p.o. daily, atorvastatin 40 mg p.o. daily
CAD:
Hold on anti-ischemic regimen until able to take oral
He is on aspirin 81 mg p.o. daily, atorvastatin.
Diabetes mellitus type 2:
Insulin sliding scale
Hold oral hypoglycemic
He is on Jardiance 10 mg p.o. daily, metformin 1000 mg p.o. daily.
Update hemoglobin A1c--> 6.3
Aortic stenosis:
Per there has been discussion with cardiology that he would not be a candidate for TAVR-can follow-up as outpatient
Last echocardiogram in 2023 showed at least moderate aortic stenosis with peak/mean gradient 50/29 mmHg.
Chronic HFmrEF:
Monitor volume status closely
Gentle IV fluid hydration for now
Not on diuretics as outpatient
Last echocardiogram in 2023 EF was 48%
Cognitive deficits:
There is baseline cognitive deficits likely prior to stroke in the past
GERD:
On pantoprazole 40 mg p.o. daily as outpatient
No need for PPI for now
Osteoarthritis:
On meloxicam 7.5 mg p.o. daily
No need for pain medications for now
DVT prophylaxis:
Lovenox SQ
CODE STATUS:
Full code
Total time spent on today's encounter was 52 minutes which included time spent in counseling the patient/family regarding diagnosis and treatment plan as listed above, goals of care, and symptom management. Case was discussed with nursing staff,
specialists, and care coordinators/case management. All labs and imaging personally reviewed by me. Remainder the time spent in detailed review of previous records, lab data, imaging, and other medical provider documentation.
Anticipated Discharge: > 48 hours
Subjective/Interval History
-
Date of Service: September 15, 2024
Patient remains encephalopathic. Afebrile today.
Objective Data
-
Labs:
Laboratory Results
09/15/24
04:38
WBC 8.7
Hgb 14.3
Hct 40.1
Plt Count 139
Sodium 142
Potassium 3.8
Chloride 110 H
Carbon Dioxide 25
BUN 17
Creatinine 0.8
Glucose 102 H
Calcium 8.4
Vital Signs:
Vital Signs
Temp Pulse Resp BP Pulse Ox
99 F 72 21 144/67 96
09/15/24 07:30 09/15/24 00:00 09/15/24 00:00 09/15/24 00:00 09/15/24 00:00
I&O
09/14/24 09/15/24 09/16/24
06:59 06:59 06:59
Intake Total 2140 / 2140 1914 / 1915
Output Total 900 / 900 1050 / 1050
Balance 1240 / 1240 865 / 865
[2024-09-15 12:52] LABS: Glucose - Point of Care 113 mg/dl (70-99)
--- NOTE | 2024-09-15 13:03 | WOUNDNOTE ---
WOC RN NOTE: Patient visited for new right ankle stage 1 PI noted on HAP report. Wound assessed and stage 1 confirmed. No-sting barrier and silicone border foam applied to right ankle. + pedal pulse. Discussed with RN, Shelley and plan is to try
heel relief boot, which was ordered from [facility]. Patient agitated at times but Shelley will attempt use of boot for off-loading. Will sign off. Contact WOC RN if wound worsens or opens.
--- NOTE | 2024-09-15 14:07 | W.PN.ID1 ---
Date of Service
Date of Service: September 15, 2024
Today's Communication
Continue current antibiotics.
Assessment / Plan
# Fever - resolving
# Aspiration pneumonitis without pneumonia
# Suspected UTI
# Encephalopathy, improved
# History of CVA and dementia
- 09/13 repeat chest x-ray - no PNA
- Blood cultures - neg to date
- Ucx: E. faecalis
- Continue Unasyn (d#3).
- Will de-escalate abx pending final cx data.
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
Dementia
CVA with aphasia
Hypertension
HLD
CAD status post stent
Heart failure with reduced EF
Aortic stenosis
Mitral regurgitation
Obstructive sleep apnea
Osteoarthritis
DJD
Depression
Restless leg syndrome
Left total knee arthroplasty
Rotator cuff repair
Cervical spine surgery
Bedbound and wheelchair-bound
Chief Complaint
-: Fever
Subjective / Review of Systems
Review of Systems: No Fever
Vital Signs / Physical Exam
Vital Signs
Vital Signs
Temp Pulse Resp BP Pulse Ox
99 F 72 21 144/67 96
09/15/24 07:30 09/15/24 00:00 09/15/24 00:00 09/15/24 00:00 09/15/24 08:19
Physical Exam
Constitutional: Chronically Ill
Eyes: Sclera Anicteric
Cardiovascular: Regular Rate and S1/S2
Pulmonary: Clear
Gastrointestinal: Soft, Non Tender and Non Distended
Genito-Urinary: Negative CVA Tenderness
Extremities: Negative Edema
Neurological: Awake
Objective Data
Lab Data
Lab Results
09/15/24 04:38
09/15/24 04:38
Estimated Creat Clear 72 ml/min 09/15/24 04:38
Lactic Acid 1.8 mmol/L (0.7-2.0) 09/12/24 20:02
Total Bilirubin 0.7 mg/dl (0.2-1.3) 09/11/24 04:57
AST 17 U/L (17-59) 09/11/24 04:57
ALT 16 U/L (0-50) 09/11/24 04:57
Alkaline Phosphatase 126 U/L (38-126) 09/11/24 04:57
Most recent labs reviewed.
Micro Results:
09/12/24 23:47 Urine Culture - Final
Urine Enterococcus faecalis
09/12/24 18:54 Urine Culture - Final
Urine Enterococcus faecalis
Klebsiella pneumoniae
09/13/24 04:46 Blood Culture - Preliminary
Blood/Venous No Growth in 48 hours- Final report to follow
09/12/24 20:02 Blood Culture - Preliminary
Blood/Venous No Growth in 48 hours- Final report to follow
09/12/24 20:02 Influenza Types A & B (ADELSO) - Final
Nasal Swab Negative for Influenza A & B, NAAT
Negative results must be combined with clinical observations
and patient history.
Nucleic Acid Amplification test (NAAT)performed on the
[employer] platform.
09/13/24 CXR: Linear atelectasis in the right lower lung.
09/11/24 CXR: No acute disease of the chest.
09/11/[address]: No acute intracranial hemorrhage. Large area of old infarction/encephalomalacia predominantly within the right parietal lobe and small old lacunar infarcts, as detailed above.
--- NOTE | 2024-09-15 14:44 | PTCARENOTE ---
Pt's assessment as documented. Aox0. Nonverbal. Uncooperative with care, swatting at staff and groaning. IVF infusing. Q2T and bed alarm maintained.
--- NOTE | 2024-09-15 16:40 | PTCARENOTE ---
This RN inserted a small bore feeding tube in patient's Right Nare @70cm. Informed primary RN and ABD xray will be ordered to confirm placement.
--- NOTE | 2024-09-15 17:00 | CM ---
Patient with Hx CVA with aphasia with Dx FRANCESCA suspect related to seizures, suspected aspiration pneumonia. O2 3L. Orders for Jevity tube feeds. Per nurse; confused, drowsy, lethargic, non-verbal.
Spoke with patient's Aamir; she feels his mentation has worsened, he is not aware of recognizing people in the room, and she is aware he cannot swallow and that tube feeds were ordered. She is waiting to see how he progresses and if he is
able to tolerate the tube feeds. is hoping he will be well enough to go home however cannot make that decision at this time. She was able to transfer him before and now is unsure if he is able. She has no space for a hospital bed at home.
CM continuing to follow.
Plan TBD.
[2024-09-15 17:17] LABS: Glucose - Point of Care 113 mg/dl (70-99)
[2024-09-15] MEDS: LOVENOX 40 MG SC (17:26)
--- NOTE | 2024-09-15 17:26 | PTCARENOTE ---
DHT placed by BEHAVIORAL MEDICAL DIRECTOR's. Awaiting XR verification. Pt attempting to pull at DHT. Order for b/l soft wrist restraints obtained- see intervention.
[2024-09-16] VITALS (13 sets, daily range): BP systolic 135–170; BP diastolic 54–104
[2024-09-16] MEDS: NOVOLOG FLEXPEN-LOW RESISTANCE SC ×2 (00:38→05:49)
[2024-09-16 00:40] LABS: Glucose - Point of Care 131 mg/dl (70-99)
[2024-09-16] MEDS: UNASYN IV ×4 (02:56→20:16)
[2024-09-16] MEDS: NSS 1000 IV ×2 (05:49→20:16)
[2024-09-16 05:57] LABS: Glucose - Point of Care 129 mg/dl (70-99)
[2024-09-16 06:09] LABS: Hematocrit 35.8 % (39.0-52.0); Hemoglobin 13.3 g/dL (13.0-18.0); Mean Corp Hgb Conc. 37.2 g/dL (33.0-37.0); Mean Corpuscular Hgb 33.5 pg (27.0-31.0); Mean Corpuscular Volume 90.2 fL (80.0-94.0); Mean Platelet Volume 11.3 fL (7.4-10.4); Platelet Count 152 10^3/uL (130-400); Red Blood Cell Count 3.97 10^6/uL (4.70-6.10); Red Cell Dist. Width 11.7 % (11.5-14.5); White Blood Cell Count 8.1 10^3/uL (4.8-10.8)
[2024-09-16 06:28] LABS: Blood Urea Nitrogen 15 mg/dl (9-20); Calcium 8.1 mg/dl (8.4-10.2); Carbon Dioxide 24 mmol/L (22-30); Chloride 111 mmol/L (98-107); Estimated Creatinine Clearance 97 ml/min; Glucose 140 mg/dl (70-99); Potassium 3.2 mmol/L (3.5-5.1); Sodium 140 mmol/L (135-145); eGFR > 60.00
--- NOTE | 2024-09-16 09:30 | W.PN.HOSP.TC ---
Today's Communication/Plan
-
Continue NG feedings. IV antibiotics
Assessment / Plan
Assessment / Plan
Physical exam:
General: Acutely ill
HEENT: Normocephalic, Atraumatic and Moist Mucous Membranes
Respiratory: Coarse notable breath sounds but relatively clear to Auscultation; Negative Wheezes, Rales or Rhonchi
Cardiac: Regular Rhythm and S1/S2, systolic murmur
GI: Soft, Nontender and Nondistended
Musculoskeletal: No Clubbing, No Cyanosis and No Edema
Neuro: Obtunded, opens eyes and moves head [id number] but does not follow commands, nonverbal. Does move spontaneously all 4 extremities.
Psych: Lack of judgment and insight
A/P:
Acute metabolic encephalopathy:
Suspected related to seizures but cannot rule out other etiology
CT of the head large old area right parietal lobe and small lacunar infarct but no acute finding
Given IV Keppra loading dose in the ED.
Neurology consult-discussed with neurology upon admission and recommended to hold on more Keprra for now given risk benefits on AED, also no MRI since he would not stay still and would not frame changer.
EEG per neurology
Keep n.p.o. until mental status improves--> started on NG tube feeds on 09/15
Stop IV fluid later today
Monitor neurological status
Seizures precautions
Keep restraints for safety
Updated over the phone yesterday
Febrile illness-aspiration pneumonitis versus UTI:
ID consult appreciated
Started on IV Unasyn for suspected aspiration pneumonia-of note follow-up chest x-ray still remains clear. Also possibility of UTI with urine culture growing Enterococcus faecalis.
Shortness of breath:
Suspected related to aspiration pneumonitis
ID eval
Suction secretions as needed
Keep n.p.o. until able to protect airway
Speech therapy eval for swallowing recommend to keep n.p.o.-will need to consider NG tube enteral feeding if remains n.p.o.
DuoNebs as needed
High blood pressure, no formal diagnosis of HTN:
IV hydralazine as needed
Hyperlipidemia:
Hold home statin until able to take oral
He is on atorvastatin 40 mg p.o. daily
CVA:
Hold antiplatelets and statins until able to take oral
He is on aspirin 81 mg p.o. daily, atorvastatin 40 mg p.o. daily
CAD:
Hold on anti-ischemic regimen until able to take oral
He is on aspirin 81 mg p.o. daily, atorvastatin.
Diabetes mellitus type 2:
Insulin sliding scale
Hold oral hypoglycemic
He is on Jardiance 10 mg p.o. daily, metformin 1000 mg p.o. daily.
Update hemoglobin A1c--> 6.3
Aortic stenosis:
Per there has been discussion with cardiology that he would not be a candidate for TAVR-can follow-up as outpatient
Last echocardiogram in 2023 showed at least moderate aortic stenosis with peak/mean gradient 50/29 mmHg.
Chronic HFmrEF:
Monitor volume status closely
Gentle IV fluid hydration for now
Not on diuretics as outpatient
Last echocardiogram in 2023 EF was 48%
Cognitive deficits:
There is baseline cognitive deficits likely prior to stroke in the past
GERD:
On pantoprazole 40 mg p.o. daily as outpatient
No need for PPI for now
Osteoarthritis:
On meloxicam 7.5 mg p.o. daily
No need for pain medications for now
DVT prophylaxis:
Lovenox SQ
CODE STATUS:
Full code
Total time spent on today's encounter was 52 minutes which included time spent in counseling the patient/family regarding diagnosis and treatment plan as listed above, goals of care, and symptom management. Case was discussed with nursing staff,
specialists, and care coordinators/case management. All labs and imaging personally reviewed by me. Remainder the time spent in detailed review of previous records, lab data, imaging, and other medical provider documentation.
Anticipated Discharge: > 48 hours
Subjective/Interval History
-
Date of Service: September 16, 2024
Patient encephalopathic, he does open his eyes but does not follow commands. Afebrile
Objective Data
-
Labs:
Laboratory Results
09/16/24
05:47
WBC 8.1
Hgb 13.3
Hct 35.8 L
Plt Count 152
Sodium 140
Potassium 3.2 L
Chloride 111 H
Carbon Dioxide 24
BUN 15
Creatinine 0.6 L
Glucose 140 H
Calcium 8.1 L
Vital Signs:
Vital Signs
Temp Pulse Resp BP Pulse Ox
98.8 F 70 14 145/78 97
09/16/24 08:33 09/16/24 08:00 09/16/24 08:00 09/16/24 08:00 09/16/24 08:00
I&O
09/15/24 09/16/24 09/17/24
06:59 06:59 06:59
Intake Total 1914 / 1914 120 / 120
Output Total 1050 / 1050 1000 / 1000
Balance 865 / 865 -880 / -880
[2024-09-16] MEDS: KCL ELIXIR 40 MEQ TUBE (09:38)
[2024-09-16] MEDS: DESENEX/MITRAZOL/ZEASORB 1 APPLIC TOPICAL ×2 (09:39→20:16)
--- NOTE | 2024-09-16 09:41 | PTCARENOTE ---
Patient with bilateral wrist restraints for protection of pulling tubes out. Patient is currently unable to follow any commands, nonverbal. Will not open his eyes. Tube feeding increased to 30 mls at 8am. Goal is 55mls/hr. Water flush at 25
mls/hr. Dobhoff in place at right nare IV fluids and antibiotics infusing as ordered via left FA INT. VS stable,afebrile. SR with PVC's in 70's. Will continue to monitor frequently.
--- NOTE | 2024-09-16 10:45 | W.PN.ID1 ---
Date of Service
Date of Service: September 16, 2024
Today's Communication
Continue antibiotics.
Assessment / Plan
# Fever - resolving
# Aspiration pneumonitis without pneumonia
# UTI with recovery of Enterococcus faecalis and Klebsiella pneumoniae
# Encephalopathy, improved
# History of CVA and dementia
- 09/13 repeat chest x-ray - no PNA
- Blood cultures - neg to date
- Ucx: E. faecalis
--> Continue Unasyn (d#4)
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
Dementia
CVA with aphasia
Hypertension
HLD
CAD status post stent
Heart failure with reduced EF
Aortic stenosis
Mitral regurgitation
Obstructive sleep apnea
Osteoarthritis
DJD
Depression
Restless leg syndrome
Left total knee arthroplasty
Rotator cuff repair
Cervical spine surgery
Bedbound and wheelchair-bound
Chief Complaint
-: Fever and UTI
Subjective / Review of Systems
Review of Systems: No Fever and No Chills
Vital Signs / Physical Exam
Vital Signs
Vital Signs
Temp Pulse Resp BP Pulse Ox
98.8 F 70 14 145/78 97
09/16/24 08:33 09/16/24 08:00 09/16/24 08:00 09/16/24 08:00 09/16/24 08:00
Physical Exam
Constitutional: Chronically Ill
Eyes: Sclera Anicteric
Cardiovascular: Regular Rate and S1/S2; Negative S3/S4
Pulmonary: Clear
Gastrointestinal: Soft, Non Tender and Non Distended
Genito-Urinary: Negative CVA Tenderness
Extremities: Negative Edema
Objective Data
Lab Data
Lab Results
09/16/24 05:47
09/16/24 05:47
Estimated Creat Clear 97 ml/min 09/16/24 05:47
Lactic Acid 1.8 mmol/L (0.7-2.0) 09/12/24 20:02
Total Bilirubin 0.7 mg/dl (0.2-1.3) 09/11/24 04:57
AST 17 U/L (17-59) 09/11/24 04:57
ALT 16 U/L (0-50) 09/11/24 04:57
Alkaline Phosphatase 126 U/L (38-126) 09/11/24 04:57
Most recent labs reviewed.
Micro Results:
09/13/24 04:46 Blood Culture - Preliminary
Blood/Venous No Growth in 72 hours- Final report to follow
09/12/24 20:02 Blood Culture - Preliminary
Blood/Venous No Growth in 72 hours- Final report to follow
09/12/24 23:47 Urine Culture - Final
Urine Enterococcus faecalis
09/12/24 18:54 Urine Culture - Final
Urine Enterococcus faecalis
Klebsiella pneumoniae
09/12/24 20:02 Influenza Types A & B (ADELSO) - Final
Nasal Swab Negative for Influenza A & B, NAAT
Negative results must be combined with clinical observations
and patient history.
Nucleic Acid Amplification test (NAAT)performed on the
[employer] platform.
09/13/24 CXR: Linear atelectasis in the right lower lung.
09/11/24 CXR: No acute disease of the chest.
09/11/[address]: No acute intracranial hemorrhage. Large area of old infarction/encephalomalacia predominantly within the right parietal lobe and small old lacunar infarcts, as detailed above.
[2024-09-16 12:00] LABS: Glucose - Point of Care 161 mg/dl (70-99)
[2024-09-16] MEDS: NOVOLOG FLEXPEN-LOW RESISTANCE 1 UNITS SC ×2 (14:38→18:43)
--- NOTE | 2024-09-16 18:00 | PTCARENOTE ---
Patient mentation is the same from this AM. Nonverbal, unable to follow commands. Restraints are still needed for protection. Patient tolerating tube feedings, advanced to 40 mls/hr at 1800. VS stable,afebrile.
[2024-09-16 18:10] LABS: Glucose - Point of Care 168 mg/dl (70-99)
[2024-09-16] MEDS: LOVENOX 40 MG SC (18:43)
[2024-09-17] VITALS (15 sets, daily range): BP systolic 122–165; BP diastolic 51–95
[2024-09-17 00:09] LABS: Glucose - Point of Care 179 mg/dl (70-99)
[2024-09-17] MEDS: NOVOLOG FLEXPEN-LOW RESISTANCE 1 UNITS SC ×4 (01:22→23:53)
[2024-09-17] MEDS: UNASYN IV ×2 (01:23→08:27)
[2024-09-17 05:17] LABS: Hematocrit 36.2 % (39.0-52.0); Hemoglobin 13.3 g/dL (13.0-18.0); Mean Corp Hgb Conc. 36.7 g/dL (33.0-37.0); Mean Corpuscular Hgb 33.5 pg (27.0-31.0); Mean Corpuscular Volume 91.2 fL (80.0-94.0); Mean Platelet Volume 11.2 fL (7.4-10.4); Platelet Count 151 10^3/uL (130-400); Red Blood Cell Count 3.97 10^6/uL (4.70-6.10); Red Cell Dist. Width 11.9 % (11.5-14.5); White Blood Cell Count 8.2 10^3/uL (4.8-10.8)
[2024-09-17 05:32] LABS: Glucose - Point of Care 180 mg/dl (70-99)
[2024-09-17 05:43] LABS: Blood Urea Nitrogen 12 mg/dl (9-20); Calcium 8.3 mg/dl (8.4-10.2); Carbon Dioxide 27 mmol/L (22-30); Chloride 109 mmol/L (98-107); Estimated Creatinine Clearance 97 ml/min; Glucose 176 mg/dl (70-99); Potassium 3.4 mmol/L (3.5-5.1); Sodium 141 mmol/L (135-145); eGFR > 60.00
[2024-09-17] MEDS: DESENEX/MITRAZOL/ZEASORB 1 APPLIC TOPICAL ×2 (08:28→20:16)
--- NOTE | 2024-09-17 09:12 | W.PN.ID1 ---
Date of Service
Date of Service: September 17, 2024
Today's Communication
Continue antibiotics. Transition to enteral Augmentin.
Assessment / Plan
# Fever - resolving
# Aspiration pneumonitis without pneumonia
# UTI with recovery of Enterococcus faecalis and Klebsiella pneumoniae
# Encephalopathy, improved
# History of CVA and dementia
- 09/13 repeat chest x-ray - no PNA
- Blood cultures - neg to date
- Ucx: E. faecalis
--> Transition to Augmentin, to continue through 09/22/2024
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
Dementia
CVA with aphasia
Hypertension
HLD
CAD status post stent
Heart failure with reduced EF
Aortic stenosis
Mitral regurgitation
Obstructive sleep apnea
Osteoarthritis
DJD
Depression
Restless leg syndrome
Left total knee arthroplasty
Rotator cuff repair
Cervical spine surgery
Bedbound and wheelchair-bound
Chief Complaint
-: Fever and UTI
Subjective / Review of Systems
Patient seen and examined. Little change overnight. No reported issues with antibiotics.
Vital Signs / Physical Exam
Vital Signs
Vital Signs
Temp Pulse Resp BP Pulse Ox
98.5 F 79 23 152/73 96
09/17/24 08:57 09/17/24 06:00 09/17/24 06:00 09/17/24 06:00 09/17/24 08:33
Physical Exam
Constitutional: Chronically Ill
Eyes: Sclera Anicteric
Cardiovascular: Regular Rate and S1/S2; Negative S3/S4
Pulmonary: Clear
Gastrointestinal: Soft, Non Tender and Non Distended
Genito-Urinary: Negative CVA Tenderness
Extremities: Negative Edema
Objective Data
Lab Data
Lab Results
09/17/24 05:06
09/17/24 05:06
Estimated Creat Clear 97 ml/min 09/17/24 05:06
Lactic Acid 1.8 mmol/L (0.7-2.0) 09/12/24 20:02
Total Bilirubin 0.7 mg/dl (0.2-1.3) 09/11/24 04:57
AST 17 U/L (17-59) 09/11/24 04:57
ALT 16 U/L (0-50) 09/11/24 04:57
Alkaline Phosphatase 126 U/L (38-126) 09/11/24 04:57
Most recent labs reviewed.
Micro Results:
09/13/24 04:46 Blood Culture - Preliminary
Blood/Venous No Growth in 4 days- Final report to follow
09/12/24 20:02 Blood Culture - Preliminary
Blood/Venous No Growth in 4 days- Final report to follow
09/12/24 23:47 Urine Culture - Final
Urine Enterococcus faecalis
09/12/24 18:54 Urine Culture - Final
Urine Enterococcus faecalis
Klebsiella pneumoniae
09/12/24 20:02 Influenza Types A & B (ADELSO) - Final
Nasal Swab Negative for Influenza A & B, NAAT
Negative results must be combined with clinical observations
and patient history.
Nucleic Acid Amplification test (NAAT)performed on the
[employer] platform.
Urine Culture Final 09/12/2024
CC: 100,000 CFU/ML Enterococcus faecalis
CC: 15,000 CFU/ML Klebsiella pneumoniae
Organism 1 Enterococcus faecalis
Organism 2 Klebsiella pneumoniae
ENTFCL K.PNEUMO
M.I.C. RX M.I.C. RX
--------- --- --------- ---
Amoxicillin/Potas. Clavulanate <=8/4 S
Ampicillin <=2 S >16 R
Ampicillin/Sulbactam <=4/2 S
Aztreonam <=4 S
Cefazolin <=2 S
Ertapenem <=0.5 S
Ciprofloxacin <=0.25 S
Gentamicin <=2 S
Gentamicin Synergy Screen <=500 S
Levofloxacin 2 S
Meropenem <=1 S
Nitrofurantoin-Urine Only <=32 S <=32 S
Piperacillin/Tazobactam <=8 S
Tetracycline <=4 S <=4 S
Tobramycin <=2 S
Trimethoprim/Sulfamethoxazole <=2/38 S
Vancomycin 2 S
Imaging:
09/13/24 CXR: Linear atelectasis in the right lower lung.
09/11/24 CXR: No acute disease of the chest.
09/11/[address]: No acute intracranial hemorrhage. Large area of old infarction/encephalomalacia predominantly within the right parietal lobe and small old lacunar infarcts, as detailed above.
--- NOTE | 2024-09-17 09:36 | W.PN.HOSP.TC ---
Today's Communication/Plan
-
asa/statins. Repeat CT head. [facility] discussions
Assessment / Plan
Assessment / Plan
Physical exam:
General: Acutely ill
HEENT: Normocephalic, Atraumatic and Moist Mucous Membranes
Respiratory: Coarse notable breath sounds but relatively clear to Auscultation; Negative Wheezes, Rales or Rhonchi
Cardiac: Regular Rhythm and S1/S2, systolic murmur
GI: Soft, Nontender and Nondistended
Musculoskeletal: No Clubbing, No Cyanosis and No Edema
Neuro: Obtunded, opens eyes and moves head [id number], nonverbal. Does move spontaneously all 4 extremities and can not appreciate hemiparesis but does not follow commands at all.
Psych: Lack of judgment and insight
A/P:
Acute left MCA territory stroke/acute metabolic encephalopathy:
Restart aspirin and statin
Seen repeat CT scan of the head shows large stroke
Discussed with about new findings and explained to her although we do have a formal diagnosis prognosis remains guarded and even more so with the extent of the stroke.
Continue NG feeding
Stop IV fluids
I reached out to neurology and informed about findings
Cont restraints to avoid pulling ngt
Will have hospice consult and possible moving towards that should he not improve over the next couple of days.
UTI/aspiration pneumonitis:
Urine culture Enterococcus faecalis
Antibiotics switched to Augmentin
ID on board
High blood pressure, no formal diagnosis of HTN:
IV hydralazine as needed
Hyperlipidemia:
Hold home statin until able to take oral
He is on atorvastatin 40 mg p.o. daily
CVA:
Old right CVA- visible changes on ct head
He is on aspirin 81 mg p.o. daily, atorvastatin 40 mg p.o. daily
CAD:
He is on aspirin 81 mg p.o. daily, atorvastatin.
Diabetes mellitus type 2:
Insulin sliding scale
Hold oral hypoglycemic
He is on Jardiance 10 mg p.o. daily, metformin 1000 mg p.o. daily.
Update hemoglobin A1c--> 6.3
Aortic stenosis:
Per there has been discussion with cardiology that he would not be a candidate for TAVR-can follow-up as outpatient
Last echocardiogram in 2023 showed at least moderate aortic stenosis with peak/mean gradient 50/29 mmHg.
Chronic HFmrEF:
Monitor volume status closely
Off ivf
Not on diuretics as outpatient
Last echocardiogram in 2023 EF was 48%
Cognitive deficits:
There is baseline cognitive deficits likely prior to stroke in the past
GERD:
On pantoprazole 40 mg p.o. daily as outpatient
No need for PPI for now
Osteoarthritis:
On meloxicam 7.5 mg p.o. daily
No need for pain medications for now
DVT prophylaxis:
Lovenox SQ
CODE STATUS:
Full code
Total time spent on today's encounter was 52 minutes which included time spent in counseling the patient/family regarding diagnosis and treatment plan as listed above, goals of care, and symptom management. Case was discussed with nursing staff,
specialists, and care coordinators/case management. All labs and imaging personally reviewed by me. Remainder the time spent in detailed review of previous records, lab data, imaging, and other medical provider documentation.
Anticipated Discharge: > 48 hours
Subjective/Interval History
-
Date of Service: September 17, 2024
Patient still remains encephalopathic. Afebrile
Objective Data
-
Labs:
Laboratory Results
09/17/24
05:06
WBC 8.2
Hgb 13.3
Hct 36.2 L
Plt Count 151
Sodium 141
Potassium 3.4 L
Chloride 109 H
Carbon Dioxide 27
BUN 12
Creatinine 0.6 L
Glucose 176 H
Calcium 8.3 L
Vital Signs:
Vital Signs
Temp Pulse Resp BP Pulse Ox
98.5 F 79 23 152/73 96
09/17/24 08:57 09/17/24 06:00 09/17/24 06:00 09/17/24 06:00 09/17/24 08:33
I&O
09/16/24 09/17/24 09/18/24
06:59 06:59 06:59
Intake Total 120 / 120 3135 / 3135
Output Total 1000 / 1000 1875 / 1875
Balance -880 / -880 1260 / 1260
[2024-09-17] MEDS: NSS 1000 IV (09:50)
[2024-09-17] MEDS: KCL ELIXIR 40 MEQ TUBE (09:51)
[2024-09-17 12:06] LABS: Glucose - Point of Care 187 mg/dl (70-99)
[2024-09-17] MEDS: NOVOLOG FLEXPEN-LOW RESISTANCE 300 UNITS SC (12:30)
[2024-09-17] MEDS: LIPITOR 40 MG TUBE ×2 (15:03→20:15)
[2024-09-17] MEDS: AUGMENTIN 250 MG/5 ML 500 MG PO ×2 (15:04→23:53)
[2024-09-17] MEDS: LOW STRENGTH ASPIRIN 81 MG TUBE ×2 (15:04→20:15)
[2024-09-17] MEDS: SENOKOT-S 1 TABLET PO (15:18)
[2024-09-17 17:22] LABS: Glucose - Point of Care 179 mg/dl (70-99)
[2024-09-17] MEDS: LOVENOX 40 MG SC (17:36)
--- NOTE | 2024-09-17 18:43 | PTCARENOTE ---
patient provided with complete care throughout the day. Pt lethargic with and occasional incomprehensible yell out. He is able to move upper extremities but does not follow any directions and when arm is extended he drops it to be, it is a slow drop
not as if flaccid. Lower legs are contractured up and bent at knees. He had no BM noted since admission. Senekot given and pt had 2 loose brown BMs. NIH ordered today, this is a complicated process as he does not follow any directions. His right
eyelid appears droopy and he does not keep his eyes open for any period of time. Oculocephalic reflex to assess eye movement appears intact. at bedside and reports she spoke with Dr. Wellington on phone regarding CT results that show a new area of
infarct. Tube feeds at goal and pt tolerating.
--- NOTE | 2024-09-17 19:27 | W.PN.NEURO.1 ---
Today's Communication / Plan
-
I reviewed head CT showing new large left MCA territory stroke in the frontal/temporal/parietal lobes, affecting Broca's area, I don't believe the patient will ever be able to talk again. despite this, his exam remains essentially unchanged,
obtunded, mute, localizing and withdrawing reasonably symmetrically. I believe the imaging and implications should be reviewed with his , and he should be made comfort measures
Neuro Assessment/Plan
Assessment
brain MRI, MRA head/neck from 2019 imgs and rept reviewed, agree large right M2 stroke.
Ceribell monitoring overnight showed no active seizures
Routine EEG this am showing continuous generalized slowing
Certainly seizure/post ictal is within the differential, with his large right M2 stroke in 2019 as potential source of seizures, though toxic/metabolic/infectious causes are more likely
stroke would be an unlikely cause of his AMS without any lateralizing deficit
spoke with 09/11, pre morbid level of cognition/functioning consistent with severe dementia, not independent with/attending to ADLs
09/[address] showing new large left MCA territory stroke in the frontal/temporal/parietal lobes, affecting Broca's area, I don't believe the patient will ever be able to talk again. despite this, his exam remains essentially unchanged,
obtunded, mute, localizing and withdrawing reasonably symmetrically. I believe the imaging and implications should be reviewed with his , and he should be made comfort measures
Subjective/Objective
Subjective Data
Date of Service: September 17, 2024
called again after repeat head CT showing large left MCA territory stroke.
Objective Data
Vital Signs
Temp Pulse Resp BP Pulse Ox
37.1 C 78 19 156/77 93
09/17/24 15:14 09/17/24 18:00 09/17/24 18:00 09/17/24 18:00 09/17/24 18:00
Lab Results
09/17/24 05:06
09/17/24 05:06
Sodium 141 mmol/L (135-145) 09/17/24 05:06
Potassium 3.4 mmol/L (3.5-5.1) L 09/17/24 05:06
BUN 12 mg/dl (9-20) 09/17/24 05:06
Glucose 176 mg/dl (70-99) H 09/17/24 05:06
Calcium 8.3 mg/dl (8.4-10.2) L 09/17/24 05:06
Cgi-D-Tvsfdouwept Pept 1820 pg/ml 09/11/24 04:57
Patient Allergies
No Known Allergies Allergy (Verified 09/11/24 04:55)
Physical Exam
-
Obtunded, briefly opens eyes and attends bilaterally, nonverbal, not following commands
semi purposeful movements with upper ext forearms anti gravity, and lower ext in plane of bed, symmetrically
localizes and withdraws symmetrically
[2024-09-17 23:42] LABS: Glucose - Point of Care 182 mg/dl (70-99)
[2024-09-18] VITALS (12 sets, daily range): BP systolic 107–149; BP diastolic 56–93; BMI 26.1
--- NOTE | 2024-09-18 03:46 | PTCARENOTE ---
Received pt at change of shift. On assessment pt heel foam started to peel off revealing a possible DTI/blistered injury on the left heel. Consulted WOC. Fiber filled boots applied to b/l feet. TF Jevity 1.5 at goal of 55 ml/hr with 25 ml/hr
flush through dobhoff in R Nare. Pt remains in restraints as pt does not follow commands to not pull tube out. NIHSS of 23; difficult to perform. Call michelle within reach.
[2024-09-18 05:43] LABS: Blood Urea Nitrogen 14 mg/dl (9-20); Calcium 8.6 mg/dl (8.4-10.2); Carbon Dioxide 31 mmol/L (22-30); Chloride 106 mmol/L (98-107); Estimated Creatinine Clearance 97 ml/min; Glucose 181 mg/dl (70-99); Potassium 4.1 mmol/L (3.5-5.1); Sodium 139 mmol/L (135-145); eGFR > 60.00
[2024-09-18 05:47] LABS: Glucose - Point of Care 170 mg/dl (70-99)
[2024-09-18] MEDS: NOVOLOG FLEXPEN-LOW RESISTANCE 1 UNITS SC ×3 (05:58→18:32)
--- NOTE | 2024-09-18 07:53 | W.PN.HOSP.TC ---
Today's Communication/Plan
-
see plan
Assessment / Plan
Assessment / Plan
Gen: NAD, awake but not alert, NCAT, appears chronically ill
Eyes: EOMI, PERRLA, no scleral icterus.
Neck: supple.
CV: RRR, +S1/S2, 1/6 ADDIS
Resp: CTAB anteriorly, no rales, wheezes, or rhonchi.
Abd: +BS, soft, NT, ND
Skin: No rashes.
Neuro: moves eyes, otherwise unable to follow commands and therefore unable to participate in neuro exam
Psych: flat affect.
CT brain 09/17/24: Large acute to subacute infarct in the left MCA distribution. Stable large chronic transcortical infarct in the right cerebral hemisphere and other chronic lacunar infarcts, as detailed above.
Abd Xray 09/15/24: Nasogastric tube tip in stomach.
CXR 09/13/24: Linear atelectasis in the right lower lung. The lungs appear otherwise clear for portable AP technique. Cardiac silhouette size is slightly enlarged with no radiographic evidence for pulmonary edema.
CXR 09/11/24: No acute disease of the chest. Mild cardiomegaly. Stable.
CT brain 09/11/24: No acute intracranial hemorrhage. Large area of old infarction/encephalomalacia predominantly within the right parietal lobe and small old lacunar infarcts, as detailed above. Findings again seen compatible with diffuse cortical
atrophy with nonspecific white matter changes as described above.
Acute left MCA territory stroke:
-cont ASA/statin
-all imaging above
-currently on NGT feeds
-s/p IVFs
-neuro following and feels that comfort measures are appropriate
-Ceribell monitoring with no active seizures and routine EEG 09/17/24AM with continuous generalized slowing
UTI/aspiration pneumonitis:
-acute metabolic encephalopathy likely due to UTI as opposed to acute stroke
-UCx with Enterococcus faecalis
-cont Augmentin as per ID
Other problems:
Elevated BPs: no h/o HTN, IV hydralazine PRN
Hyperlipidemia: cont statin
CAD: cont ASA/statin
DM2: SSI/accuchecks
Aortic stenosis
Chronic HFmrEF: Daily wts, I/Os
Cognitive deficits, likely due to prior CVA
Possible dementia
GERD: cont PPI
Osteoarthritis
FULL/Lovenox
Anticipated Discharge: 24 - 48 hours
Subjective/Interval History
-
Date of Service: September 18, 2024
Objective Data
-
Labs:
Laboratory Results
09/18/24
04:45
Sodium 139
Potassium 4.1
Chloride 106
Carbon Dioxide 31 H
BUN 14
Creatinine 0.6 L
Glucose 181 H
Calcium 8.6
Vital Signs:
Vital Signs
Temp Pulse Resp BP Pulse Ox
100 F 75 22 130/62 93
09/18/24 03:04 09/18/24 06:00 09/18/24 06:00 09/18/24 06:00 09/18/24 06:00
I&O
09/17/24 09/18/24 09/19/24
06:59 06:59 06:59
Intake Total 3135 / 3135 1290 / 1290
Output Total 1875 / 1875 1900 / 1900
Balance 1260 / 1260 -610 / -610
--- NOTE | 2024-09-18 10:05 | W.PN.ID1 ---
Date of Service
Date of Service: September 18, 2024
Today's Communication
-Continue enteric Augmentin 875mg bid through 09/22/2024
Assessment / Plan
# Fever - resolved
# Aspiration pneumonitis without pneumonia, now with DHT
# UTI with recovery of Enterococcus faecalis
# Encephalopathy, improved
# History of CVA and dementia
- 09/13 repeat chest x-ray - no PNA
- Blood cultures - neg to date
- Ucx: E. faecalis
-Continue enteric Augmentin 875mg bid through 09/22/2024
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
Dementia
CVA with aphasia
Hypertension
HLD
CAD status post stent
Heart failure with reduced EF
Aortic stenosis
Mitral regurgitation
Obstructive sleep apnea
Osteoarthritis
DJD
Depression
Restless leg syndrome
Left total knee arthroplasty
Rotator cuff repair
Cervical spine surgery
Bedbound and wheelchair-bound
Chief Complaint
-: UTI
Vital Signs / Physical Exam
Vital Signs
Vital Signs
Temp Pulse Resp BP Pulse Ox
100 F 75 22 130/62 93
09/18/24 03:04 09/18/24 06:00 09/18/24 06:00 09/18/24 06:00 09/18/24 06:00
Physical Exam
Constitutional: Chronically Ill
Pulmonary: Clear
Gastrointestinal: Soft, Non Tender, Non Distended and Normal Bowel Sounds
Genito-Urinary: Negative CVA Tenderness
Musculoskeletal: Negative Spinal Tenderness
Objective Data
Lab Data
Lab Results
09/17/24 05:06
09/18/24 04:45
Estimated Creat Clear 97 ml/min 09/18/24 04:45
Lactic Acid 1.8 mmol/L (0.7-2.0) 09/12/24 20:02
Total Bilirubin 0.7 mg/dl (0.2-1.3) 09/11/24 04:57
AST 17 U/L (17-59) 09/11/24 04:57
ALT 16 U/L (0-50) 09/11/24 04:57
Alkaline Phosphatase 126 U/L (38-126) 09/11/24 04:57
Most recent labs reviewed.
Micro Results:
09/13/24 04:46 Blood Culture - Final
Blood/Venous No Growth - Final Report
09/12/24 20:02 Blood Culture - Final
Blood/Venous No Growth - Final Report
09/12/24 23:47 Urine Culture - Final
Urine Enterococcus faecalis
09/12/24 18:54 Urine Culture - Final
Urine Enterococcus faecalis
Klebsiella pneumoniae
09/12/24 20:02 Influenza Types A & B (ADELSO) - Final
Nasal Swab Negative for Influenza A & B, NAAT
Negative results must be combined with clinical observations
and patient history.
Nucleic Acid Amplification test (NAAT)performed on the
[employer] platform.
Urine Culture Final 09/12/2024
CC: 100,000 CFU/ML Enterococcus faecalis
CC: 15,000 CFU/ML Klebsiella pneumoniae
Organism 1 Enterococcus faecalis
Organism 2 Klebsiella pneumoniae
ENTFCL K.PNEUMO
M.I.C. RX M.I.C. RX
--------- --- --------- ---
Amoxicillin/Potas. Clavulanate <=8/4 S
Ampicillin <=2 S >16 R
Ampicillin/Sulbactam <=4/2 S
Aztreonam <=4 S
Cefazolin <=2 S
Ertapenem <=0.5 S
Ciprofloxacin <=0.25 S
Gentamicin <=2 S
Gentamicin Synergy Screen <=500 S
Levofloxacin 2 S
Meropenem <=1 S
Nitrofurantoin-Urine Only <=32 S <=32 S
Piperacillin/Tazobactam <=8 S
Tetracycline <=4 S <=4 S
Tobramycin <=2 S
Trimethoprim/Sulfamethoxazole <=2/38 S
Vancomycin 2 S
Imaging:
09/13/24 CXR: Linear atelectasis in the right lower lung.
09/11/24 CXR: No acute disease of the chest.
09/11/[address]: No acute intracranial hemorrhage. Large area of old infarction/encephalomalacia predominantly within the right parietal lobe and small old lacunar infarcts, as detailed above.
--- NOTE | 2024-09-18 10:07 | WOUNDNOTE ---
R HEEL (blanchable red)
--- NOTE | 2024-09-18 10:07 | WOUNDNOTE ---
SACRAL/BUTTOCKS (BLANCHABLE RED/PURPLE)
--- NOTE | 2024-09-18 10:10 | WOUNDNOTE ---
WO RN Note: Patient incontinent of liquid brown stool. Chey care given. Patient has a L heel blood blister (DTI) and a R lateral ankle small DTI. L heel blanchable red. Sacral/buttocks blanchable red/purple. Patient lays in a position with
knees bent which causes his heels to dig into mattress despite using soft heel relief boots (TruVue lite boots). Foam dressing changed on heels and R ankle. t/c SPD and ordered a bariatric air chair cushion. Patient turned to L semi side lying
position using foam turning wedge and pillow with help from [facility] and [facility] RN student [employer]. Bariatric air cushion placed under patient's heels/boots under fitted sheet to cushion heels. Case discussed with LOPEZ Funk. Will update Dr. Alaniz.
Neurologist note states comfort measures appropriate for patient. Care plan to be updated. Will follow as needed.
--- NOTE | 2024-09-18 10:11 | WOUNDNOTE ---
WOC RN Note: Patient incontinent of liquid brown stool. Chey care given. Patient has a L heel blood blister (DTI) and a R lateral ankle small DTI. L heel blanchable red. Sacral/buttocks blanchable red/purple. Patient lays in a position with
knees bent which causes his heels to dig into mattress despite using soft heel relief boots (TruVue lite boots). Foam dressing changed on heels and R ankle. t/c SPD and ordered a bariatric air chair cushion. Discussed with PCT Karlo requesting air
cushion be placed under patient's feet/heels under fitted sheet to cushion heels. Case discussed with LOPEZ Funk. Will update Dr. Alaniz. Neurologist note states comfort measures appropriate for patient. Care plan to be updated. Will follow as
needed.
--- NOTE | 2024-09-18 10:49 | WOUNDNOTE ---
[facility] RN note: Updated Dr. Alaniz re: L heel and R lateral ankle DTI who approved local care. Also updated patient's via t/c. Patient at high risk for additional or worsening of pressure injuries despite preventative measures in place d/t patient's
overall medical condition.
--- NOTE | 2024-09-18 10:50 | CM ---
Patient with Hx CVA with aphasia, dementia with Dx Aspiration pneumonitis, Suspected UTI, FRANCESCA. O2 2L. Receiving PO Abx. Small bore feeding tube- Jevity tube feeds at goal rate. Seen by wound care nurse. Per nurse; soft restraints, confused,
drowsy., lethargic.
Consult: Hospice
Met with patient with nurse Blessing; patient remained sleeping.
Spoke with patient's Aamir;
Explained hospice philosophy & benefits.
agreeing to speak with Hospice however she says she is not ready to make the decision today.
Aamir expressed concern about tube feedings being discontinued.
is working today at in Billing Dept x [phone]. She states she can also be reached on her cell ph [phone].
She is possibly interested in SNF at [facility] and understands it would be private pay for patient in hospice- provided MC rating.
Aamir says there are currently 2 sons living at home however 1 son is moving out as he is getting in the next few wks.
Spoke with [facility] re; referral.
Phone call to [facility] SN[facility]; left message re; referral.
Plan follow up after 's decision re; hospice.
[2024-09-18] MEDS: AUGMENTIN 250 MG/5 ML 500 MG PO ×3 (11:10→23:06)
[2024-09-18] MEDS: DESENEX/MITRAZOL/ZEASORB 1 APPLIC TOPICAL ×2 (11:10→21:09)
--- NOTE | 2024-09-18 11:34 | PTCARENOTE ---
During walking rounds found patient's dobhoff pulled out by 10cm. Advanced tube to 70cm hung. Portable xray obtained to confirm proper placement for use. Wound tempering kiln tender to address heel and ankle wound. Off loading boots in place. NIH score
23. Bilateral wrist restraints in use to prevent pulling tube and equipment off. Patient unable to follow commands, nonverbal. Patient grunts and groans while providing nursing care.
[2024-09-18 12:06] LABS: Glucose - Point of Care 160 mg/dl (70-99)
[2024-09-18] MEDS: PREVACID 30 MG TUBE (13:19)
--- NOTE | 2024-09-18 15:13 | HOSPNOTE ---
Spoke with spouse and explained hospice and philosophy. The spouse would like another CT on Wednesday and then will make a decision in regards to hospice care. The spouse understands about the feeding tube in place for now and stated the patient
would not want a PEG tube. All questions answered and will continue to follow. For now patient remains a full code.
[2024-09-18 18:12] LABS: Glucose - Point of Care 199 mg/dl (70-99)
[2024-09-18] MEDS: LOVENOX 40 MG SC (18:33)
--- NOTE | 2024-09-18 19:00 | PTCARENOTE ---
Patient INC x2 very large stool blowouts. Liquid stool mixed with urine. 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 New wound care orders for left heel and left lateral wound. Off loading boots ordered. VS stable,afebrile.
[2024-09-18] MEDS: LIPITOR 40 MG TUBE (21:10)
[2024-09-18] MEDS: LOW STRENGTH ASPIRIN 81 MG TUBE (21:10)
[2024-09-19] VITALS (12 sets, daily range): BP systolic 103–156; BP diastolic 56–120
[2024-09-19] MEDS: NOVOLOG FLEXPEN-LOW RESISTANCE 1 UNITS SC ×3 (00:04→18:42)
[2024-09-19 00:09] LABS: Glucose - Point of Care 193 mg/dl (70-99)
--- NOTE | 2024-09-19 00:59 | PTCARENOTE ---
NIH 23 and difficult to perform, patient does not follow commands.NSR on monitor. 2L NC, patient does desat at times but returns to mid 90s. Dubhoff in right nare. TF jevity 1.5 55ml/hr with a [address] for protective measures.
at bedside for a few hours. Assessment and vital signs as documented. call michelle in reach.
[2024-09-19 06:03] LABS: Glucose - Point of Care 195 mg/dl (70-99)
[2024-09-19] MEDS: PREVACID 30 MG TUBE (08:21)
[2024-09-19] MEDS: AUGMENTIN 250 MG/5 ML 500 MG PO ×2 (08:21→16:42)
[2024-09-19] MEDS: DESENEX/MITRAZOL/ZEASORB 1 APPLIC TOPICAL ×2 (08:22→20:11)
--- NOTE | 2024-09-19 09:34 | W.PN.ID1 ---
Date of Service
Date of Service: September 19, 2024
Today's Communication
-Continue enteric Augmentin 875mg bid through 09/22/2024
- ID will sign off. Call prn
Assessment / Plan
# Fever - resolved
# Aspiration pneumonitis without pneumonia, now with DHT
# UTI with recovery of Enterococcus faecalis
# History of CVA and dementia
- Blood cultures - neg
- Ucx: E. faecalis
-Continue enteric Augmentin 875mg bid through 09/22/2024
- ID will sign off.
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
Dementia
CVA with aphasia
Hypertension
HLD
CAD status post stent
Heart failure with reduced EF
Aortic stenosis
Mitral regurgitation
Obstructive sleep apnea
Osteoarthritis
DJD
Depression
Restless leg syndrome
Left total knee arthroplasty
Rotator cuff repair
Cervical spine surgery
Bedbound and wheelchair-bound
Chief Complaint
-: UTI
Vital Signs / Physical Exam
Vital Signs
Vital Signs
Temp Pulse Resp BP Pulse Ox
99.1 F 80 32 142/120 95
09/19/24 03:32 09/19/24 06:00 09/19/24 06:00 09/19/24 06:00 09/19/24 08:18
Physical Exam
Constitutional: Chronically Ill
Cardiovascular: Regular Rate and S1/S2
Pulmonary: Clear (anteriorly)
Gastrointestinal: Soft, Non Tender, Non Distended and Normal Bowel Sounds
Genito-Urinary: Negative CVA Tenderness
Extremities: Negative Edema
Objective Data
Lab Data
Lab Results
09/17/24 05:06
09/18/24 04:45
Estimated Creat Clear 97 ml/min 09/18/24 04:45
Lactic Acid 1.8 mmol/L (0.7-2.0) 09/12/24 20:02
Total Bilirubin 0.7 mg/dl (0.2-1.3) 09/11/24 04:57
AST 17 U/L (17-59) 09/11/24 04:57
ALT 16 U/L (0-50) 09/11/24 04:57
Alkaline Phosphatase 126 U/L (38-126) 09/11/24 04:57
Most recent labs reviewed.
Micro Results:
09/13/24 04:46 Blood Culture - Final
Blood/Venous No Growth - Final Report
09/12/24 20:02 Blood Culture - Final
Blood/Venous No Growth - Final Report
09/12/24 23:47 Urine Culture - Final
Urine Enterococcus faecalis
09/12/24 18:54 Urine Culture - Final
Urine Enterococcus faecalis
Klebsiella pneumoniae
09/12/24 20:02 Influenza Types A & B (ADELSO) - Final
Nasal Swab Negative for Influenza A & B, NAAT
Negative results must be combined with clinical observations
and patient history.
Nucleic Acid Amplification test (NAAT)performed on the
[employer] platform.
Urine Culture Final 09/12/2024
CC: 100,000 CFU/ML Enterococcus faecalis
CC: 15,000 CFU/ML Klebsiella pneumoniae
Organism 1 Enterococcus faecalis
Organism 2 Klebsiella pneumoniae
ENTFCL K.PNEUMO
M.I.C. RX M.I.C. RX
--------- --- --------- ---
Amoxicillin/Potas. Clavulanate <=8/4 S
Ampicillin <=2 S >16 R
Ampicillin/Sulbactam <=4/2 S
Aztreonam <=4 S
Cefazolin <=2 S
Ertapenem <=0.5 S
Ciprofloxacin <=0.25 S
Gentamicin <=2 S
Gentamicin Synergy Screen <=500 S
Levofloxacin 2 S
Meropenem <=1 S
Nitrofurantoin-Urine Only <=32 S <=32 S
Piperacillin/Tazobactam <=8 S
Tetracycline <=4 S <=4 S
Tobramycin <=2 S
Trimethoprim/Sulfamethoxazole <=2/38 S
Vancomycin 2 S
Imaging:
09/13/24 CXR: Linear atelectasis in the right lower lung.
09/11/24 CXR: No acute disease of the chest.
09/11/[address]: No acute intracranial hemorrhage. Large area of old infarction/encephalomalacia predominantly within the right parietal lobe and small old lacunar infarcts, as detailed above.
--- NOTE | 2024-09-19 12:52 | W.PN.HOSP.TC ---
Today's Communication/Plan
-
see plan
Assessment / Plan
Assessment / Plan
Gen: NAD, NCAT, appears chronically ill
CV: remains RRR, +S1/S2, 04/17 ADDIS
Resp: remains CTAB anteriorly, no rales, wheezes, or rhonchi.
Abd: remains +BS, soft, NT, ND
Skin: No rashes.
Neuro: sleeping
CT brain 09/17/24: Large acute to subacute infarct in the left MCA distribution. Stable large chronic transcortical infarct in the right cerebral hemisphere and other chronic lacunar infarcts, as detailed above.
Abd Xray 09/15/24: Nasogastric tube tip in stomach.
CXR 09/13/24: Linear atelectasis in the right lower lung. The lungs appear otherwise clear for portable AP technique. Cardiac silhouette size is slightly enlarged with no radiographic evidence for pulmonary edema.
CXR 09/11/24: No acute disease of the chest. Mild cardiomegaly. Stable.
CT brain 09/11/24: No acute intracranial hemorrhage. Large area of old infarction/encephalomalacia predominantly within the right parietal lobe and small old lacunar infarcts, as detailed above. Findings again seen compatible with diffuse cortical
atrophy with nonspecific white matter changes as described above.
Acute left MCA territory stroke:
-cont ASA/statin
-all imaging above
-currently on NGT feeds
-s/p IVFs
-neuro following and feels that comfort measures are appropriate
-Ceribell monitoring with no active seizures and routine EEG 09/17/24AM with continuous generalized slowing
UTI/aspiration pneumonitis:
-acute metabolic encephalopathy likely due to UTI as opposed to acute stroke
-UCx with Enterococcus faecalis
-cont Augmentin through 09/22/24 as per ID
Other problems:
Elevated BPs: no h/o HTN, IV hydralazine PRN
Hyperlipidemia: cont statin
CAD: cont ASA/statin
DM2: SSI/accuchecks
Aortic stenosis
Chronic HFmrEF: Daily wts, I/Os
Cognitive deficits, likely due to prior CVA
Possible dementia
GERD: cont PPI
Osteoarthritis
I had an extensive conversation with the pt's today at bedside. She does not want a PEG tube and is likely going to opt for hospice. Pt is now DNR.
DNR/Lovenox
Total time spent on today's encounter was 50 minutes which included time spent in counseling the patient/family regarding diagnosis and treatment plan as listed above, goals of care, and symptom management. Case was discussed with nursing staff,
specialists, and care coordinators/case management. All labs and imaging personally reviewed by me. Remainder the time spent in detailed review of previous records, lab data, imaging, and other medical provider documentation.
Anticipated Discharge: Within 24 hours
Subjective/Interval History
-
Date of Service: September 19, 2024
Pt sleeping
Objective Data
-
Vital Signs:
Vital Signs
Temp Pulse Resp BP Pulse Ox
99.5 F 78 22 148/81 93
09/19/24 07:35 09/19/24 10:00 09/19/24 10:00 09/19/24 10:00 09/19/24 10:00
I&O
09/18/24 09/19/24 09/20/24
06:59 06:59 06:59
Intake Total 1290 / 1290 900 / 900
Output Total 1900 / 1900 450 / 450
Balance -610 / -610 450 / 450
[2024-09-19 13:04] LABS: Glucose - Point of Care 244 mg/dl (70-99)
--- NOTE | 2024-09-19 13:11 | CM ---
Addendum entered by Joan Sullivan RN 09/19/24 13:22:
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
Original Note:
Patient with Hx CVA with aphasia, dementia with Dx Aspiration pneumonitis, UTI. O2 2L. Receiving PO Abx. Small bore feeding tube- Jevity tube feeds at goal rate. Seen by wound care nurse. Per nurse; soft restraints, confused, drowsy,
non-verbal.
Spoke with Arely, [facility]; they are declining due to patient's wound care needs. Per Arely, please convey no available bed.
Met with patient and Aamir;
provided update that [facility] declined due to no available bed.
Provided SNF list and ratings for local facilities- chose [facility].
was tearful stating she has not decided on hospice yet as she wishes to speak with MD first, and she indicated she will probably agree to hospice by tomorrow.
Messages with Dr Alaniz and [facility].
SNF referrals placed.
Plan follow up after decides about hospice.
Plan follow up SNF referrals.
[2024-09-19] MEDS: NOVOLOG FLEXPEN-LOW RESISTANCE 2 UNITS SC (13:24)
--- NOTE | 2024-09-19 15:12 | HOSPNOTE ---
Spoke with spouse and she is in agreement to meet tomorrow to discuss hospice and will sign consent forms and the patient will remain inpatient hospice. I will call admissions in the am and get the hospice chart started. Attending and CM aware of
plan.
--- NOTE | 2024-09-19 16:34 | PTCARENOTE ---
There has been no change in patient's mentation. NIH score remain 23. Patient made DNR. Patient's Aamir spoke with Hospice today. Room available on [address] [place] [id number]. Waiting to give report to receiving RN. Getting patient ready for
transfer.
[2024-09-19] MEDS: LOVENOX 40 MG SC (16:42)
--- NOTE | 2024-09-19 17:41 | PTCARENOTE ---
Report given to [address] [place] [address]. Patient transferred to [id number]. All belongings with the patient.
[2024-09-19 18:40] LABS: Glucose - Point of Care 178 mg/dl (70-99)
[2024-09-19] MEDS: LIPITOR 40 MG TUBE (21:13)
[2024-09-19] MEDS: LOW STRENGTH ASPIRIN 81 MG TUBE (21:13)
[2024-09-20] MEDS: AUGMENTIN 250 MG/5 ML 500 MG PO ×2 (00:08→07:54)
[2024-09-20] MEDS: NOVOLOG FLEXPEN-LOW RESISTANCE 1 UNITS SC (00:13)
[2024-09-20 00:14] LABS: Glucose - Point of Care 198 mg/dl (70-99)
[2024-09-20 03:01] VITALS: BP 129/68
[2024-09-20 05:31] LABS: Glucose - Point of Care 200 mg/dl (70-99)
[2024-09-20] MEDS: NOVOLOG FLEXPEN-LOW RESISTANCE 2 UNITS SC (05:32)
[2024-09-20 07:25] VITALS: BP 113/78
[2024-09-20] MEDS: PREVACID 30 MG TUBE (07:53)
[2024-09-20] MEDS: DESENEX/MITRAZOL/ZEASORB 1 APPLIC TOPICAL (07:54)
--- NOTE | 2024-09-20 08:44 | W.PN.HOSP.TC ---
Addendum entered and electronically signed by Mauro Alaniz MD 09/20/24 13:47:
Total time spent on d/c = 45 min. This included today's physical exam, progress note, review of laboratory and diagnostic data, preparation of discharge documents and prescriptions, and discussions about the pt's hospital course and discharge plan
with the patient and other emergency medical tech involved in the patient's care.
Original Note:
Today's Communication/Plan
-
likely plans to transition to hospice
Assessment / Plan
Assessment / Plan
Gen: NAD, Awake and minimally alert, NCAT
Eyes: EOMI, PERRLA, no scleral icterus.
Neck: supple.
CV: RRR, +S1/S2, no m/r/g.
Resp: CTAB anteriorly, no rales, wheezes, or rhonchi.
Abd: +BS, soft, NT, ND
Skin: No rashes.
Neuro: CN 2-12 intact
Psych: flat affect
CT brain 09/17/24: Large acute to subacute infarct in the left MCA distribution. Stable large chronic transcortical infarct in the right cerebral hemisphere and other chronic lacunar infarcts, as detailed above.
Abd Xray 09/15/24: Nasogastric tube tip in stomach.
CXR 09/13/24: Linear atelectasis in the right lower lung. The lungs appear otherwise clear for portable AP technique. Cardiac silhouette size is slightly enlarged with no radiographic evidence for pulmonary edema.
CXR 09/11/24: No acute disease of the chest. Mild cardiomegaly. Stable.
CT brain 09/11/24: No acute intracranial hemorrhage. Large area of old infarction/encephalomalacia predominantly within the right parietal lobe and small old lacunar infarcts, as detailed above. Findings again seen compatible with diffuse cortical
atrophy with nonspecific white matter changes as described above.
Acute left MCA territory stroke:
-cont ASA/statin
-all imaging above
-currently on NGT feeds
-s/p IVFs
-neuro following and feels that comfort measures are appropriate
-Ceribell monitoring with no active seizures and routine EEG 09/17/24AM with continuous generalized slowing
UTI/aspiration pneumonitis:
-acute metabolic encephalopathy likely due to UTI as well as acute stroke
-UCx with Enterococcus faecalis
-cont Augmentin through 09/22/24 as per ID
Other problems:
Hypokalemia, resolved
Elevated BPs: no h/o HTN, IV hydralazine PRN
Hyperlipidemia: cont statin
CAD: cont ASA/statin
DM2: SSI/accuchecks
Aortic stenosis
Chronic HFmrEF: Daily wts, I/Os
Cognitive deficits, likely due to prior (and now new) CVA
Possible dementia
GERD: cont PPI
Osteoarthritis
I had an extensive conversation with the pt's on 09/19/24 at bedside. She does not want a PEG tube and is likely going to opt for hospice. Pt is now DNR.
DNR/Lovenox
Anticipated Discharge: Within 24 hours
Subjective/Interval History
-
Date of Service: September 20, 2024
Patient currently nonverbal
Objective Data
-
Vital Signs:
Vital Signs
Temp Pulse Resp BP Pulse Ox
97.9 F 94 16 113/78 98
09/20/24 07:25 09/20/24 07:25 09/20/24 07:25 09/20/24 07:25 09/20/24 07:25
I&O
09/19/24 09/20/24 09/21/24
06:59 06:59 06:59
Intake Total 900 / 900
Output Total 450 / 450
Balance 450 / 450
--- NOTE | 2024-09-20 11:13 | HOSPNOTE ---
Spoke with spouse and she is in agreement with inpatient hospice. The patient will need to remain inpatient hospice for pain and agitation. Admissions was called.
[2024-09-20] MEDS: NOVOLOG FLEXPEN-LOW RESISTANCE SC (12:04)
--- NOTE | 2024-09-20 12:15 | CM ---
Reviewed the chart notes. Per hospice plan administrator, to transition to inpatient hospice today. CM continues to be available to patient/family.
Plan: Inpatient hospice.
--- NOTE | 2024-09-20 12:43 | PTCARENOTE ---
Patient to be transitioned to inpatient hospice. Tube feeds stopped, NGT and B/L wrist restraints removed per MD and data clerk. Bed bath provided by this RN and tech.
--- NOTE | 2024-09-20 13:13 | W.DCSUMMARY ---
Discharge Summary
Discharge Data
Date of Admission: 09/11/24
Date of Discharge: 09/20/24
-
Pending Results: No
Hospital Course
The patient is being discharged and readmitted to inpatient hospice.
Primary diagnoses:
Acute left middle cerebral artery territory stroke
Urinary tract infection
Aspiration pneumonitis
Acute metabolic encephalopathy
Secondary diagnoses:
Hypokalemia
Elevated blood pressures
Hyperlipidemia
Coronary artery disease
Type 2 diabetes mellitus
Aortic stenosis
Chronic heart failure moderately reduced ejection fraction
Cognitive deficits, likely due to prior (and now new) cerebrovascular
Possible dementia
Gastroesophageal reflux disease
Osteoarthritis
Consultants:
Infectious Disease
Neurology
Imaging:
CT brain 09/17/24: Large acute to subacute infarct in the left MCA distribution. Stable large chronic transcortical infarct in the right cerebral hemisphere and other chronic lacunar infarcts, as detailed above.
Abd Xray 09/15/24: Nasogastric tube tip in stomach.
CXR 09/13/24: Linear atelectasis in the right lower lung. The lungs appear otherwise clear for portable AP technique. Cardiac silhouette size is slightly enlarged with no radiographic evidence for pulmonary edema.
CXR 09/11/24: No acute disease of the chest. Mild cardiomegaly. Stable.
CT brain 09/11/24: No acute intracranial hemorrhage. Large area of old infarction/encephalomalacia predominantly within the right parietal lobe and small old lacunar infarcts, as detailed above. Findings again seen compatible with diffuse cortical
atrophy with nonspecific white matter changes as described above.
83 y/o M who presented with acute change in mental status as outlined in the H&P done on admission. Initially the thought was that the patient's acute metabolic encephalopathy was thought to be due to UTI, possible seizure, and possible progression
of severe dementia as well as sequelae of aspiration pneumonitis. The patient was initially placed on Keppra. The patient was seen by neurology and Dr. Guillermo felt that seizures were unlikely. Keppra was stopped. Infectious disease saw the patient in
consult and the patient was on empiric Unasyn. The patient did have a urine culture growing Enterococcus faecalis and was de-escalated to Augmentin. All imaging above. On repeat imaging the patient was found to have a large acute to subacute
infarct in the left MCA distribution. It is likely that this new stroke was the greatest component of the patient's change in mental status/acute metabolic encephalopathy. He was supported with IV fluids. He was placed on NG tube feeds.
Neurology commented that hospice was appropriate. Of note he did have Ceribell monitoring with no active seizures and routine EEG 09/17/24 with continuous generalized slowing. On September 20, 2024 the patient's signed the patient onto hospice and
he is being admitted to inpatient hospice at this time.
Discharge Plan
-
Patient Disposition: Hospice - Inpatient [facility]
Discharge Orders:
Discharge Patient (As Directed); Ordered 09/20/24
Ordered By: Mauro Alaniz
Discharge Date and Time
Print Language: CANADIAN
[2024-09-20] MEDS: MORPHINE SULFATE 2 MG IV (13:15)
[2024-09-20] MEDS: NSS (PRESERVATIVE FREE) 0.25 ML IV (13:15)
[2024-09-20] MEDS: ATIVAN 0.5 MG IV (13:15)
== END 2024-09-20 14:03 | disposition hospice, inpatient (51) | DRG 64 ==
LOC: 2 NORTH 10:19
PROVIDERS: Nurse Practitioner Family; ADMITTING PHYSICIAN Hospitalist; ATTENDING PHYSICIAN Internal Medicine; CONSULT PHYSICIAN Internal Medicine Infectious Disease; CONSULT PHYSICIAN Psychiatry & Neurology Clinical Neurophysiology; EMERGENCY PHYSICIAN Emergency Medicine; FAMILY PHYSICIAN Family Medicine
DX: I63.512 Cerebral infarction due to unspecified occlusion or stenosis of left middle cerebral artery (principal); G93.41 Metabolic encephalopathy; J69.0 Pneumonitis due to inhalation of food and vomit; I50.22 Chronic systolic (congestive) heart failure; N39.0 Urinary tract infection, site not specified; I11.0 Hypertensive heart disease with heart failure; K21.9 Gastro-esophageal reflux disease without esophagitis; I69.320 Aphasia following cerebral infarction; E78.00 Pure hypercholesterolemia, unspecified; Z79.82 Long term (current) use of aspirin; E11.9 Type 2 diabetes mellitus without complications; I25.10 Atherosclerotic heart disease of native coronary artery without angina pectoris; I35.0 Nonrheumatic aortic (valve) stenosis; L89.321 Pressure ulcer of left buttock, stage 1; L89.311 Pressure ulcer of right buttock, stage 1; Z74.01 Bed confinement status; Z99.3 Dependence on wheelchair; Z66 Do not resuscitate; E87.6 Hypokalemia
CPT/HCPCS: 70450; 71045; 74018; 80048; 80053; 81003; 81015; 82962; 83036; 83605; 83735; 83880; 84439; 84443; 84484; 85025; 85027; 87040; 87077; 87086; 87186; 87502; 87811; 92526; 92610; 93005; 94640; 95816; 96374; 99285

== ENCOUNTER 2024-09-20 14:04 | Inpatient (IN) | payer OTHER, SELFPAY ==
--- NOTE | 2024-09-20 13:18 | HOSPNOTE ---
Patient will be admitted inpatient hospice. Patient will be seen daily by hospice nurse.
--- NOTE | 2024-09-20 13:52 | HPS.HSE ---
Family Physician
-
Family Physician: NOT KNOW UNKNOWN - PT DOES
Chief Complaint
-
Admission for inpatient hospice
History of Present Illness
83 M with PMHx:
Acute left middle cerebral artery territory stroke
Urinary tract infection
Aspiration pneumonitis
Acute metabolic encephalopathy
Hyperlipidemia
Coronary artery disease
Type 2 diabetes mellitus
Aortic stenosis
Chronic heart failure moderately reduced ejection fraction
Cognitive deficits, likely due to prior (and now new) cerebrovascular
Possible dementia
Gastroesophageal reflux disease
Osteoarthritis
Who is being directly admitted for inpatient hospice. On his recent admission initially the thought was that the patient's acute metabolic encephalopathy was thought to be due to UTI, possible seizure, and possible progression of severe dementia as
well as sequelae of aspiration pneumonitis. The patient was initially placed on Keppra. The patient was seen by neurology and Dr. Guillermo felt that seizures were unlikely. Keppra was stopped. Infectious disease saw the patient in consult and the patient
was on empiric Unasyn. The patient did have a urine culture growing Enterococcus faecalis and was de-escalated to Augmentin. All imaging above. On repeat imaging the patient was found to have a large acute to subacute infarct in the left MCA
distribution. It is likely that this new stroke was the greatest component of the patient's change in mental status/acute metabolic encephalopathy. He was supported with IV fluids. He was placed on NG tube feeds. Neurology commented that hospice
was appropriate. Of note he did have Ceribell monitoring with no active seizures and routine EEG 09/17/24 with continuous generalized slowing. On September 20, 2024 the patient's signed the patient onto hospice and he is being admitted to
inpatient hospice at this time.
Medical History
Past Medical History
Past Medical History: Reports Other (as per HPI)
Past Surgical History: Reports None (N/A)
Social History
Tobacco: Non-smoker
Alcohol: None
Drug: None
Family History
Family History: Not pertinent
Allergies / Home Medications
Allergies reflects when Allergies were last updated in [facility].
Home Medications with original date entered in [facility]
Allergy/Medication List:
Allergies
Allergy/AdvReac Type Severity Reaction Status Date / Time
No Known Allergies Allergy Verified 09/11/24 04:55
Home Medications
pantoprazole 40 mg tablet,delayed release 40 mg PO DAILY 12/13/19
aspirin 81 mg chewable tablet 81 mg PO HS Blood clot prevention/tx 02/22/20
atorvastatin 40 mg tablet 40 mg PO HS High cholesterol 02/22/20
empagliflozin 10 mg tablet (Jardiance) 10 mg PO DAILY Diabetes 04/05/20
metformin 1,000 mg tablet 1,000 mg PO BID Diabetes ##0 05/24/20
Review of Systems
-
Unable to obtain full review of systems at this time due to: Acuity
Physical Exam
Physical Exam
General: Other (.)
Impression/Plan
-
Gen: NAD, Awake and minimally alert, NCAT
Eyes: EOMI, PERRLA, no scleral icterus.
Neck: supple.
CV: RRR, +S1/S2, no m/r/g.
Resp: CTAB anteriorly, no rales, wheezes, or rhonchi.
Abd: +BS, soft, NT, ND
Skin: No rashes.
Neuro: CN 2-12 intact
Psych: flat affect
Admit to inpt hospice. Hospice meds (Ativan/Morphine) will be used for comfort.
--- NOTE | 2024-09-20 14:10 | CM ---
Reviewed the chart notes. Patient transitioned to inpatient hospice today.
[2024-09-20 14:38] VITALS: BP 113/78
--- NOTE | 2024-09-20 14:39 | PTCARENOTE ---
Patient transitioned to inpatient hospice. NGT and restraints removed, TF stopped per MD. Ruvalcaba inserted for end of life, draining yellow colored urine. Fiber filled boots in place, fresh foams placed on R knee, R ankle, L heel. Sacrum foam placed,
hygiene provided, at bedside updated on plan of care.
[2024-09-20] MEDS: HALDOL 1 MG IV (15:30)
[2024-09-20] MEDS: ROBINUL 0.2 MG IV ×2 (15:30→21:35)
[2024-09-20] MEDS: ATIVAN 1 MG IV (17:20)
[2024-09-20] MEDS: MORPHINE SULFATE 2 MG IV ×2 (17:21→21:39)
[2024-09-20 20:14] VITALS: BP 127/73
[2024-09-21] MEDS: MORPHINE SULFATE 2 MG IV ×6 (02:01→16:32)
[2024-09-21] MEDS: ROBINUL 0.2 MG IV ×4 (05:41→20:56)
[2024-09-21 07:12] VITALS: BP 109/64
--- NOTE | 2024-09-21 08:30 | W.PN.HOSP.TC ---
Today's Communication/Plan
-
see plan
Assessment / Plan
Assessment / Plan
Gen: NAD, NCAT
CV: RRR, +S1/S2, 1/6 systolic murmur
Resp: CTAB anteriorly, no rales, wheezes, or rhonchi.
Abd: +BS, soft, NT, ND
Inpatient hospice care for recent CVA:
-cont morphine PRN with progression to gtt if indicated for symptom management
-IV Ativan/Haldol PRN
Anticipated Discharge: Within 24 hours
Subjective/Interval History
-
Date of Service: September 21, 2024
Pt sleeping.
Objective Data
-
Vital Signs:
Vital Signs
Temp Pulse Resp BP Pulse Ox
99.1 F 86 16 109/64 94
09/21/24 07:12 09/21/24 07:12 09/21/24 07:12 09/21/24 07:12 09/21/24 07:12
I&O
09/20/24 09/21/24 09/22/24
06:59 06:59 06:59
Intake Total 0 / 0
Output Total 1150 / 1150
Balance -1150 / -1150
[2024-09-21] MEDS: ATIVAN 1 MG IV ×2 (09:04→16:31)
--- NOTE | 2024-09-21 10:22 | CM ---
Reviewed the chart notes. Family and pastoral care at the bedside. CM continues to be available to patient/family.
Plan: GIP Hospice continues.
[2024-09-21] MEDS: MORPHINE 100 IV (11:56)
[2024-09-21] MEDS: TRANSDERM-SCOP 1 PATCH TRANSDERM (12:52)
--- NOTE | 2024-09-21 13:19 | HOSPNOTE ---
Patient has increased secretions patient has been medicated with Robinol every four hours, postural drainage was done and mouth care performed. Patient has been given 3 doses of morphine and is now on a morphine drip per protocol. Patient has been
given Ativan for agitation. Once patient is medicated he seems to rest comfortably, however prior to care or repositioning patient needs to be medicated. No family was bedside at the time of my visit. Patient continues to be inpatient appropriate
for management of agitation and pain. Patient will be seen daily.
--- NOTE | 2024-09-21 13:46 | PTCARENOTE ---
Patient started on morphine gtt per protocol, medicated with PRN IV morphine x3 for pain/discomfort with care and occasional labored breathing. Morphine gtt started at step 2 per MD order, infusing through R FA at 2 mg/hr. Patient with excessive
oral secretions and weak moist cough, medicated with PRN IV Robinul, verbal order taken for scop patch placed behind R ear - see JUN. End of life Ruvalcaba in place, bed bath provided to patient, foams in place on B/L heels and ankles and sacrum.
[2024-09-21 19:00] VITALS: BP 109/58
[2024-09-21 19:42] VITALS: BP 109/58
[2024-09-21 23:28] VITALS: BP 117/59
[2024-09-22] MEDS: MORPHINE SULFATE 2 MG IV ×2 (05:16→10:43)
[2024-09-22] MEDS: ROBINUL 0.2 MG IV ×4 (05:17→23:18)
[2024-09-22 07:00] VITALS: BP 115/59
[2024-09-22] MEDS: HALDOL 1 MG IV (07:41)
--- NOTE | 2024-09-22 08:40 | W.PN.HOSP.TC ---
Today's Communication/Plan
-
see plan
Assessment / Plan
Assessment / Plan
Gen: NAD, NCAT
CV: RRR, +S1/S2, 1/6 systolic murmur
Resp: coarse BS B/L
Neuro: Intermittent clonus of the upper extremities
Inpatient hospice care for recent CVA:
-cont morphine morphine gtt
-IV Ativan/Haldol PRN
Anticipated Discharge: Within 24 hours
Subjective/Interval History
-
Date of Service: September 22, 2024
Objective Data
-
Vital Signs:
Vital Signs
Temp Pulse Resp BP Pulse Ox
98 F 95 16 115/59 81
09/22/24 07:00 09/22/24 07:00 09/22/24 07:00 09/22/24 07:00 09/22/24 07:00
I&O
09/21/24 09/22/24 09/23/24
06:59 06:59 06:59
Intake Total 0 / 0
Output Total 1150 / 1150 900 / 900
Balance -1150 / -1150 -900 / -900
--- NOTE | 2024-09-22 08:55 | HOSPNOTE ---
NARRATIVE: CHIEF OF STAFF VISITED 83 YEAR OLD PATIENT TO CONDUCT INITIAL DICE MANAGER ASSESSMENT. PATIENT RECENTLY ADMITTED [facility]NTO HOSPICE SERVICES AND [facility] LEVEL OF CARE WITH PRIMARY DIAGNOSIS OF CVA. NURSE REPORTED PATIENT OCCASIONALLY OPENS HIS EYES,
NON-VERBAL, MEDICATIONS ADMINISTERED, AND RESTING COMFORTABLY. DICE MANAGER GREETED PATIENT WHILE ENTERING HIS ROOM. PATIENT LYING IN BED ASLEEP AND APPEARED TO BE RESTING COMFORTABLY, NO SIGNS OF PAIN AND/OR DISTRESS OBSERVED. NO FAMILY MEMBERS PRESENT AT
PATIENT'S BEDSIDE. DICE MANAGER CONTACTED PATIENT'S SPOUSE NICCI TO SEE HOW SHE WAS DOING AND TO OFFER SUPPORTIVE SERVICES. SPOUSE REPORTED SHE'S OKAY, HAVEN'T BEEN TO WORK ALL WEEK AND DECIDED TO GO TODAY AND OVERSLEPT. SPOUSE REPORTED SHE RESTED WELL LAST
NIGHT. SPOUSE REPORTED SHE DIDN'T HAVE TIME TO SPEAK WITH DICE MANAGER AND WOULD CALL ON WEDNESDAY. PATIENT IS BUDDHIST AND IS AFFILIATED WITH [facility]. SPOUSE REPORTED PATIENT'S WISHES ARE TO BE CREMATED AND SHE'S LOOKING AT A COUPLE OF
HOMES IN [place]. DICE MANAGER ENCOURAGED SPOUSE TO PROVIDE NURSES WITH THE HOME INFORMATION. SPOUSE REPORTED HER 2 SONS RESIDE IN THE HOME AND THEY ARE HER SUPPORTS. EMOTIONAL SUPPORT PROVIDED
PATIENT MEETS [facility] FOR SN ASSESSMENTS, MANAGEMENT OF PAIN AND AGITATION THAT COULD NOT BE MANAGED AT HOME AND/OR IN AN OUTPATIENT SETTING. DISCHARGE PLANNING CONTINUES.
PLAN FOR NEXT VISIT: CONTINUE TO PROVIDE SUPPORTIVE SERVICES AND MONITOR FOR ADDITIONAL SERVICES ONCE A WEEK WHILE ON GIP LOC.
--- NOTE | 2024-09-22 10:46 | CM ---
Pt continues with Hospice GIP.
Comfort measures given .
Appears spouse has good support with [facility] and family.
PLAN Continue GIP
--- NOTE | 2024-09-22 11:44 | HOSPNOTE ---
Patient is resting comfortably, patient is medicated with PRN doses of morphine and ativan prior to any repositioning. Patient has increased secretions and Robinol is given Q4 hours and appears uncomfortable with care. Encouraged to medicate prior
to care. Patient continues to be inpatient appropriate for pain and agitation requiring IV medications. Patient will be seen daily.
[2024-09-22 19:30] VITALS: BP 132/66
[2024-09-23] MEDS: TYLENOL/FEVERALL 650 MG RECTAL ×2 (01:17→23:59)
[2024-09-23] MEDS: MORPHINE 100 IV (02:37)
[2024-09-23] MEDS: ROBINUL 0.2 MG IV (05:49)
[2024-09-23 07:25] VITALS: BP 125/62
--- NOTE | 2024-09-23 09:59 | W.PN.HOSP.TC ---
Today's Communication/Plan
-
see plan
Assessment / Plan
Assessment / Plan
Gen: NAD, NCAT
CV: remains RRR, +S1/S2, 1/6 systolic murmur
Resp: CTAB anteriorly
Abd: +BS/soft/NT/ND
Inpatient hospice care for recent CVA:
-cont morphine gtt
-IV Ativan/Haldol PRN
Anticipated Discharge: Within 24 hours
Subjective/Interval History
-
Date of Service: September 23, 2024
Objective Data
-
Vital Signs:
Vital Signs
Temp Pulse Resp BP Pulse Ox
102.2 F H 99 26 125/62 90
09/23/24 07:25 09/23/24 07:25 09/23/24 07:25 09/23/24 07:25 09/23/24 07:25
I&O
09/22/24 09/23/24 09/24/24
06:59 06:59 06:59
Intake Total 0 / 0
Output Total 900 / 900 710 / 710
Balance -900 / -900 -710 / -710
--- NOTE | 2024-09-23 10:03 | HOSPNOTE ---
Received update from floor nurse bal.patient just washed up and repositioned.Ice bags applied for elevated temp.Comfortable at this time.Received patient in bed on rt side.Appears comfortable and calm at this time.Minumally responsive.Opened
eyes x 2 during my visit. IV step 2 morphine infusing without difficulty to rt arm.Site with out redness , irritation or swelling.Minumal secreations noted.Respirations loud at times. T- 99.3, Res 22 HR 94 BP 110/90.Last prn morphine at 2:37 AM
,tylenol at 1:17 AM And Rubunol at 5:49.No aggitaion noted at this time .GIP remains for symptom managment and comfort.IV medications effective.Emotional support provided to patient called with update and to offer support
--- NOTE | 2024-09-23 10:30 | CHAP ---
Mt was sleeping comfortably, no family present. He opened his eyes briefly from time to time. Director Of [employer] provided emotional and spiritual support through presence, words of comfort, Scripture reading and prayer. Will continue support through
weekly visits.
[2024-09-23] MEDS: MORPHINE SULFATE 2 MG IV ×2 (21:08→23:47)
[2024-09-23 22:43] VITALS: BP 117/60
[2024-09-24] MEDS: HALDOL 1 MG IV ×2 (00:23→05:09)
[2024-09-24] MEDS: NSS (PRESERVATIVE FREE) 0.25 ML IV ×3 (02:20→15:53)
[2024-09-24] MEDS: ATIVAN 0.5 MG IV ×3 (02:20→15:53)
[2024-09-24] MEDS: MORPHINE SULFATE 2 MG IV ×3 (02:20→05:09)
[2024-09-24 07:40] VITALS: BP 106/52
[2024-09-24] MEDS: MORPHINE SULFATE 4 MG IV ×5 (08:51→20:36)
[2024-09-24] MEDS: TYLENOL/FEVERALL 650 MG RECTAL ×2 (08:51→15:53)
--- NOTE | 2024-09-24 10:04 | W.PN.HOSP.TC ---
Today's Communication/Plan
-
see plan
Assessment / Plan
Assessment / Plan
Gen: NAD, NCAT
CV: continues to remain RRR, +S1/S2, 1/6 systolic murmur
Resp: remains CTAB anteriorly
Abd: hypoactive BS/soft/NT/ND
Inpatient hospice care for recent CVA:
-cont morphine gtt
-IV Ativan/Haldol PRN
Anticipated Discharge: Within 24 hours
Subjective/Interval History
-
Date of Service: September 24, 2024
Pt sleeping.
Objective Data
-
Vital Signs:
Vital Signs
Temp Pulse Resp BP Pulse Ox
101.5 F H 92 12 106/52 88
09/24/24 07:40 09/24/24 07:40 09/24/24 07:40 09/24/24 07:40 09/24/24 07:40
I&O
09/23/24 09/24/24 09/25/24
06:59 06:59 06:59
Intake Total 0 / 0
Output Total 710 / 710 850 / 850
Balance -710 / -710 -850 / -850
[2024-09-24] MEDS: ROBINUL 0.2 MG IV ×3 (10:30→22:18)
--- NOTE | 2024-09-24 15:04 | HOSPNOTE ---
Unresponsive, currently very well managed with morphine gtt at 4mg/hr. at bedside, discussed at [place] signs that may present as end of life grows near. Emotional support provided, encouraged to call agency with any care or support needs.
Patient remains appropriate at [facility] LOC.
[2024-09-24] MEDS: MORPHINE 100 IV (15:34)
[2024-09-24 19:09] VITALS: BP 130/71
[2024-09-24] MEDS: OFIRMEV 100 IV (20:56)
[2024-09-24] MEDS: MORPHINE SULFATE 6 MG IV (22:17)
[2024-09-25] MEDS: MORPHINE SULFATE 6 MG IV ×2 (00:33→06:19)
[2024-09-25] MEDS: MORPHINE SULFATE 4 MG IV (02:08)
[2024-09-25] MEDS: TYLENOL/FEVERALL 650 MG RECTAL (02:11)
--- NOTE | 2024-09-25 07:19 | W.PN.DEATH ---
Pronouncement of
-
Called to see patient to pronounce.
No spontaneous heart tones or respirations noted.
Patient not responsive to verbal stimuli.
Patient is pronounced .
Time of : 06:37
Date of : 09/25/24
Cause of : ischemic stroke, primary hypertension
Family Notified: Yes ( present in the room)
--- NOTE | 2024-09-25 09:36 | CM ---
Chart reviewed and per notes patient is on GIP with [facility]. Spouse is at bedside.
Plan; Inpatient hospice with [facility].
== END 2024-09-25 06:37 | disposition expired | DRG 951 ==
LOC: 2 NORTH 14:04
PROVIDERS: ADMITTING PHYSICIAN Internal Medicine; ATTENDING PHYSICIAN Hospitalist
DX: Z51.5 Encounter for palliative care (principal); I63.512 Cerebral infarction due to unspecified occlusion or stenosis of left middle cerebral artery; J69.0 Pneumonitis due to inhalation of food and vomit; G93.41 Metabolic encephalopathy; N39.0 Urinary tract infection, site not specified; I50.22 Chronic systolic (congestive) heart failure; E78.5 Hyperlipidemia, unspecified; I25.10 Atherosclerotic heart disease of native coronary artery without angina pectoris; E11.9 Type 2 diabetes mellitus without complications; I35.0 Nonrheumatic aortic (valve) stenosis; I11.0 Hypertensive heart disease with heart failure; K21.9 Gastro-esophageal reflux disease without esophagitis; B95.2 Enterococcus as the cause of diseases classified elsewhere; M19.90 Unspecified osteoarthritis, unspecified site